=== PATIENT | female | born 1960 | race Asian ===

== ENCOUNTER 2016-09-29 19:28 | Emergency (ER) | payer BC ==
[~2016-09-29] VITALS: Ht 160 cm; Wt 71.9 kg
[2016-09-29 19:34] VITALS: TEMP 37; Ht 160 cm; Wt 71.9 kg
[2016-09-29] MEDS ORDERED: MoRPHine SULFATE 4 MG/ML 1 ML CARP\\VIAL IV STA (19:53)
[2016-09-29] MEDS ORDERED: ONDANSETRON INJ 2 MG/ML 2 ML VIAL IV STA (19:53)
[2016-09-29 20:12] LABS: URINE APPEARANCE CLEAR (CLEAR); URINE BILIRUBIN NEG (NEG); URINE COLOR YELLOW; URINE NITRITE NEG (NEG); URINE PH 7.5 (4.5-7.5); URINE SPECIFIC GRAVITY 1.004 (1.000-1.030); UROBILINOGEN NEG (NEG)
[2016-09-29 20:17] LABS: BASO % 0.3 %; BASO ABS # 0.03 K/uL (0-0.2); COMPLETE YES; EOS % 2.1 %; HEMATOCRIT 35.9 % (37-47); IG% 0.1 %; LYMPH % 49.3 %; LYMPH ABS # 4.42 K/uL (1.2-3.4); MEAN CELL VOLUME 84.7 fL (80-100); MEAN CORPUSCULAR HEMOGLOBIN 29.7 pg (25-34); MEAN CORPUSCULAR HGB CONC 35.1 g/dl (32-36); MEAN PLATELET VOLUME 9.8 fL (7.4-10.4); MONO % 4.4 %; NEUT % 43.8 %; PLATELET COUNT 303 K/uL (130-400); RED BLOOD COUNT 4.24 M/uL (4.2-5.4); WHITE BLOOD COUNT 8.96 K/uL (4.8-10.8)
[2016-09-29 20:19] LABS: MANUAL MICROSCOPIC REQUIRED? NO; REVIEW REQ? NO
[2016-09-29 20:27] LABS: PROTHROMBIN TIME (PATIENT) 10.3 SECONDS (9.0-12.0)
[2016-09-29 20:35] LABS: ALT/SGPT 33 U/L (12-78); AST/SGOT 21 U/L (15-37); BLOOD UREA NITROGEN 12 mg/dl (7-18); BUN/CREATININE RATIO 14.7 (10-20); CALCIUM 8.8 mg/dl (8.5-10.1); CARBON DIOXIDE 23 mmol/L (21-32); CHLORIDE 110 mmol/L (98-107); CREATININE 0.81 mg/dl (0.60-1.20); GLUCOSE 137 mg/dl (70-99); SODIUM 143 mmol/L (136-145)
[2016-09-29 20:37] LABS: ALKALINE PHOSPHATASE 92 U/L (45-117)
[2016-09-29] MEDS ORDERED: TOPI50TA16 PO (20:41)
[2016-09-29] MEDS ORDERED: PANT40TA PO (20:41)
[2016-09-29] MEDS ORDERED: SIMV20TA2 PO (20:41)
[2016-09-29] MEDS ORDERED: ASPI81TA28 PO (20:41)
[2016-09-29] MEDS ORDERED: PROP80TA2 PO (20:41)
[2016-09-29] MEDS ORDERED: AMLO-110 PO (20:41)
[2016-09-29] MEDS ORDERED: CHOLTAB11 PO (20:41)
[2016-09-29] MEDS ORDERED: PARO1TAB27 PO (20:41)
[2016-09-29] MEDS ORDERED: TRAZ50TA35 PO (20:41)
--- NOTE | 2016-09-29 21:17 | DIAGNOSTIC IMAGING REPORT ---
ULTRASOUND RIGHT UPPER QUADRANT ABDOMEN CLINICAL HISTORY: Right upper quadrant abdominal pain. COMPARISON STUDY: No priors. TECHNIQUE: Real-time, grayscale, and color flow sonography of the right upper quadrant of the abdomen was performed. Images are reviewed in the transverse and longitudinal planes. FINDINGS: Liver: The liver is top normal in size and demonstrates heterogeneously increased echotexture consistent with hepatic steatosis. There is no intrahepatic biliary ductal dilatation. The main portal vein is patent. Gallbladder: The gallbladder is normal in appearance. No gallstones are identified. There is no gallbladder wall thickening or pericholecystic fluid. A sonographic Escobedo's sign is reportedly absent. The common bile duct measures up to 0.5 cm in diameter. Pancreas: Visualized portions of the pancreatic head and body are normal in appearance. The splenic vein is patent. Right kidney: Survey images of the right kidney demonstrate normal size and echotexture. There is mild right-sided hydronephrosis. Ascites: None. IMPRESSION: 1. There is mild right-sided hydronephrosis. This raises concern for an obstructing ureteral calculus. Consider correlation with a KUB for further assessment. 2. No gallstones are identified. 3. Hepatic steatosis. Electronically signed by: Rolf Emerson M.D. 09/29/2016 9:15 PM Dictated Date/Time: 09/29/2016 9:14 PM
--- NOTE | 2016-09-29 21:46 | DIAGNOSTIC IMAGING REPORT ---
ADDENDUM ADDENDUM: As mentioned in the findings, there is an indeterminant 1.7 cm nodule identified in the right breast. Follow-up at the breast center with mammography is recommended for further assessment. Electronically signed by: Rolf Emerson M.D. 09/30/2016 10:00 AM Dictated Date/Time: 09/30/2016 10:[address] SCAN OF THE ABDOMEN AND PELVIS WITHOUT IV CONTRAST CLINICAL HISTORY: Right-sided abdominal pain. Right-sided hydronephrosis shown by ultrasound. COMPARISON STUDY: Abdominal ultrasound dated 09/29/2016. TECHNIQUE: CT scan of the abdomen and pelvis is performed from the lung bases to the proximal femora. Images are reviewed in the axial, sagittal, and coronal planes. IV contrast was not administered for this examination. Automated dose control exposure was utilized. CT DOSE: 1029.09 mGy.cm FINDINGS: Lung bases: The heart is normal in size and without pericardial effusion. The lung bases are clear noting dependent atelectasis. There is a 1.7 cm nodule in the right breast seen on image #34. There is a tiny hiatal hernia. Liver: The unenhanced liver is enlarged, measuring 18.3 cm in length. The liver demonstrates diffusely diminished attenuation consistent with hepatic steatosis. Fatty sparing is seen adjacent to the gallbladder fossa. There is no intrahepatic biliary ductal dilatation. Gallbladder: Unremarkable. Spleen: Normal in size and attenuation. Pancreas: Unremarkable. Adrenal glands: Unremarkable. Kidneys: The unenhanced kidneys demonstrate minimal cortical atrophy. There is a large right-sided extrarenal pelvis and mild right hydronephrosis. No hydronephrosis is seen on the left. The right ureter is normal in caliber. No renal calculi are identified. There is no evidence of contour deforming renal mass lesion. Abdominal vasculature: The abdominal aorta is normal in course and caliber. Bowel: The small bowel and colon are normal in course and caliber. There are scattered colonic diverticula without CT evidence of acute diverticulitis. The appendix is not identified. Peritoneum: There is no intraperitoneal free air or abdominal ascites. There is a small fat-containing umbilical hernia. Lymphadenopathy: None. Pelvic viscera: The bladder is normal as visualized. The uterus is surgically absent. No adnexal lesion is seen. Trace free fluid is noted in the cul-de-sac. Skeletal structures: No lytic or blastic lesions are seen. IMPRESSION: 1. There are no acute infectious or inflammatory findings in the abdomen or pelvis. 2. There is a large right-sided extrarenal pelvis and mild right hydronephrosis. The right ureter is normal in caliber and no renal calculi are identified. This likely represents a mild UPJ type obstruction. Nonemergent follow-up with urology is recommended. 3. Hepatomegaly and hepatic steatosis. 4. Additional findings as above. Electronically signed by: Rolf Emerson M.D. 09/29/2016 9:45 PM Dictated Date/Time: 09/29/2016 9:38 PM
[2016-09-29 22:17] VITALS: BP 148/81; PULSE 72; O2SAT 98
--- NOTE | 2016-09-29 23:20 | EMERGENCY ROOM VISIT NOTE ---
History Report prepared by Guadalupe: Rebecca Danielson Under the Supervision of: Dr. Evgeny Kirk M.D. First contact with patient: 19:46 Chief Complaint: ABDOMINAL PAIN Stated Complaint: ABD PAIN History of Present Illness The patient is a 55 year old female who presents to the Emergency Room with complaints of persistent upper abdominal pain that started 3 days ago. Per the patient's daughter, the patient describes this as a stabbing pain. This pain is worse after eating. The patient had similar, but less severe, pain 6 months ago[address] A abdominal CT and endoscopy were performed which were both negative. The patient denies vomiting, melena, hematochezia, diarrhea, and fevers. She denies any abnormal vaginal bleeding or discharge. She has no urinary symptoms. She has a history of an appendectomy, back in [facility], and a bilateral oophorectomy. Source of History: patient, family Onset: 3 days ago Position: abdomen Symptom Intensity: moderate Quality: stabbing Modifying Factors (Worsening): eating Associated Symptoms: No fevers, No hematochezia, No melena, No vomiting Review of Systems See HPI for pertinent positives & negatives. A total of 10 systems reviewed and were otherwise negative. Past Medical & Surgical Medical Problems: (1) Heart disease Surgical Problems: (1) Hx of appendectomy (2) Hx of bilateral oophorectomy Family History FH: cancer FH: diabetes mellitus FH: gallbladder disease FH: heart disease FH: hypertension FH: kidney disease FH: lung disease FH: stroke Social History Smoking Status: Never Smoker Alcohol Use: none Drug Use: none Marital Status: Housing Status: lives with family Occupation Status: unemployed Current/Historical Medications Scheduled Amlodipine (Norvasc), 5 MG PO DAILY Aspirin (Aspirin Ec), 81 MG PO QPM Cholecalciferol (D-5000), 1 TAB PO DAILY Pantoprazole (Protonix), 40 MG PO DAILY Paroxetine (Paxil), 20 MG PO DAILY Propranolol (Inderal), 80 MG PO BID Simvastatin (Zocor), 20 MG PO DAILY Topiramate (Topamax), 50 MG PO HS Scheduled PRN Trazodone Hcl (Trazodone), 50 MG PO HS PRN for Sleep Allergies Coded Allergies: Lemon (Verified Allergy, Intermediate, swelling, 09/29/16) Pratt (Unverified Adverse Reaction, Unknown, swelling, 09/29/16) Physical Exam Vital Signs Date Time Temp Pulse Resp B/P Pulse Ox O2 Delivery O2 Flow Rate FiO2 09/29/16 22:17 72 18 148/81 98 09/29/16 21:44 99 18 132/78 99 Room Air 09/29/16 19:34 37.0 75 18 148/91 98 Room Air Physical Exam Constitutional: Vital signs reviewed. Eyes: Pupils are equal round reactive to light. Conjunctiva are noninjected. ENT: Pharynx is clear without erythema or exudate. Mucous membranes are moist. Neck supple without meningeal signs. Respiratory: Clear to auscultation bilaterally. Breath sounds are equal bilaterally. Cardiovascular: Regular rate and rhythm. No rubs or gallops. GI: Epigastric right upper quadrant tenderness without guarding. No Escobedo's sign. Soft, nondistended Bowel sounds are present. Musculoskeletal: No peripheral edema. No lower extremity tenderness. No CVA tenderness. Integumentary: No cyanosis. Neurological: The patient is awake and alert. No focal deficits. Psychiatric: Normal affect. Medical Decision & Procedures ER Provider Diagnostic Interpretation: US results as stated below per interpretation by me and the radiologist: ULTRASOUND RIGHT UPPER QUADRANT ABDOMEN CLINICAL HISTORY: Right upper quadrant abdominal pain. COMPARISON STUDY: No priors. TECHNIQUE: Real-time, grayscale, and color flow sonography of the right upper quadrant of the abdomen was performed. Images are reviewed in the transverse and longitudinal planes. FINDINGS: Liver: The liver is top normal in size and demonstrates heterogeneously increased echotexture consistent with hepatic steatosis. There is no intrahepatic biliary ductal dilatation. The main portal vein is patent. Gallbladder: The gallbladder is normal in appearance. No gallstones are identified. There is no gallbladder wall thickening or pericholecystic fluid. A sonographic Escobedo's sign is reportedly absent. The common bile duct measures up to 0.5 cm in diameter. Pancreas: Visualized portions of the pancreatic head and body are normal in appearance. The splenic vein is patent. Right kidney: Survey images of the right kidney demonstrate normal size and echotexture. There is mild right-sided hydronephrosis. Ascites: None. IMPRESSION: 1. There is mild right-sided hydronephrosis. This raises concern for an obstructing ureteral calculus. Consider correlation with a KUB for further assessment. 2. No gallstones are identified. 3. Hepatic steatosis. Electronically signed by: Rolf Vilbert, M.D. 09/29/2016 9:15 PM Dictated Date/Time: 09/29/2016 9:[address] results as stated below per interpretation by me and the radiologist: CT SCAN OF THE ABDOMEN AND PELVIS WITHOUT IV CONTRAST CLINICAL HISTORY: Right-sided abdominal pain. Right-sided hydronephrosis shown by ultrasound. COMPARISON STUDY: Abdominal ultrasound dated 09/29/2016. TECHNIQUE: CT scan of the abdomen and pelvis is performed from the lung bases to the proximal femora. Images are reviewed in the axial, sagittal, and coronal planes. IV contrast was not administered for this examination. Automated dose control exposure was utilized. CT DOSE: 1029.09 mGy.cm FINDINGS: Lung bases: The heart is normal in size and without pericardial effusion. The lung bases are clear noting dependent atelectasis. There is a 1.7 cm nodule in the right breast seen on image #34. There is a tiny hiatal hernia. Liver: The unenhanced liver is enlarged, measuring 18.3 cm in length. The liver demonstrates diffusely diminished attenuation consistent with hepatic steatosis. Fatty sparing is seen adjacent to the gallbladder fossa. There is no intrahepatic biliary ductal dilatation. Gallbladder: Unremarkable. Spleen: Normal in size and attenuation. Pancreas: Unremarkable. Adrenal glands: Unremarkable. Kidneys: The unenhanced kidneys demonstrate minimal cortical atrophy. There is a large right-sided extrarenal pelvis and mild right hydronephrosis. No hydronephrosis is seen on the left. The right ureter is normal in caliber. No renal calculi are identified. There is no evidence of contour deforming renal mass lesion. Abdominal vasculature: The abdominal aorta is normal in course and caliber. Bowel: The small bowel and colon are normal in course and caliber. There are scattered colonic diverticula without CT evidence of acute diverticulitis. The appendix is not identified. Peritoneum: There is no intraperitoneal free air or abdominal ascites. There is a small fat-containing umbilical hernia. Lymphadenopathy: None. Pelvic viscera: The bladder is normal as visualized. The uterus is surgically absent. No adnexal lesion is seen. Trace free fluid is noted in the cul-de-sac. Skeletal structures: No lytic or blastic lesions are seen. IMPRESSION: 1. There are no acute infectious or inflammatory findings in the abdomen or pelvis. 2. There is a large right-sided extrarenal pelvis and mild right hydronephrosis. The right ureter is normal in caliber and no renal calculi are identified. This likely represents a mild UPJ type obstruction. Nonemergent follow-up with urology is recommended. 3. Hepatomegaly and hepatic steatosis. 4. Additional findings as above. Electronically signed by: Rolf Emerson M.D. 09/29/2016 9:45 PM Dictated Date/Time: 09/29/2016 9:38 PM Laboratory Results 09/29/16 20:05 Red Blood Count 4.24, Mean Corpuscular Volume 84.7, Mean Corpuscular Hemoglobin 29.7, Mean Corpuscular Hemoglobin Concent 35.1, Mean Platelet Volume 9.8, Neutrophils (%) (Auto) 43.8, Lymphocytes (%) (Auto) 49.3, Monocytes (%) (Auto) 4.4, Eosinophils (%) (Auto) 2.1, Basophils (%) (Auto) 0.3, Neutrophils # (Auto) 3.92, Lymphocytes # (Auto) 4.42, Monocytes # (Auto) 0.39, Eosinophils # (Auto) 0.19, Basophils # (Auto) 0.03 09/29/16 20:05 Test 09/29/16 20:00 09/29/16 20:05 Urine Color YELLOW Urine Appearance CLEAR (CLEAR) Urine pH 7.5 (4.5-7.5) Urine Specific [place] 1.004 (1.000-1.030) Urine Protein NEG (NEG) Urine Glucose (UA) NEG (NEG) Urine Ketones NEG (NEG) Urine Occult Blood NEG (NEG) Urine Nitrite NEG (NEG) Urine Bilirubin NEG (NEG) Urine Urobilinogen NEG (NEG) Urine Leukocyte Esterase NEG (NEG) White Blood Count 8.96 K/uL (4.8-10.8) Red Blood Count 4.24 M/uL (4.2-5.4) Hemoglobin 12.6 g/dL (12.0-16.0) Hematocrit 35.9 % (37-47) Mean Corpuscular Volume 84.7 fL (80-100) Mean Corpuscular Hemoglobin 29.7 pg (25-34) Mean Corpuscular Hemoglobin Concent 35.1 g/dl (32-36) Platelet Count 303 K/uL (130-400) Mean Platelet Volume 9.8 fL (7.4-10.4) Neutrophils (%) (Auto) 43.8 % Lymphocytes (%) (Auto) 49.3 % Monocytes (%) (Auto) 4.4 % Eosinophils (%) (Auto) 2.1 % Basophils (%) (Auto) 0.3 % Neutrophils # (Auto) 3.92 K/uL (1.4-6.5) Lymphocytes # (Auto) 4.42 K/uL (1.2-3.4) Monocytes # (Auto) 0.39 K/uL (0.11-0.59) Eosinophils # (Auto) 0.19 K/uL (0-0.5) Basophils # (Auto) 0.03 K/uL (0-0.2) RDW Standard Deviation 41.0 fL (36.4-46.3) RDW Coefficient of Variation 13.4 % (11.5-14.5) Immature Granulocyte % (Auto) 0.1 % Immature Granulocyte # (Auto) 0.01 K/uL (0.00-0.02) Prothrombin Time 10.3 SECONDS (9.0-12.0) Prothromb Time International Ratio 1.0 (0.9-1.1) Activated Partial Thromboplast Time 25.0 SECONDS (21.0-31.0) Partial Thromboplastin Ratio 1.0 Anion Gap 10.0 mmol/L (3-11) Est Creatinine Clear Calc Drug Dose 74.6 ml/min Estimated GFR () 94.8 Estimated GFR (Non- 81.8 BUN/Creatinine Ratio 14.7 (10-20) Calcium Level 8.8 mg/dl (8.5-10.1) Total Bilirubin 0.3 mg/dl (0.2-1) Direct Bilirubin < 0.1 mg/dl (0-0.2) Aspartate Amino Transf (AST/SGOT) 21 U/L (15-37) Alanine Aminotransferase (ALT/SGPT) 33 U/L (12-78) Alkaline Phosphatase 92 U/L (45-117) Total Protein 7.4 gm/dl (6.4-8.2) Albumin 3.7 gm/dl (3.4-5.0) Lipase 162 U/L (73-393) Laboratory results as reviewed by me. Medications Administered Medications (Trade) Dose Ordered Sig/Antonieta Route Start Time Stop Time Status Last Admin Dose Admin Morphine Sulfate (MoRPHine SULFATE INJ) 4 mg ONE STAT IV 09/29/16 19:53 09/29/16 19:54 DC 09/29/16 19:53 4 MG Ondansetron HCl (Zofran Inj) 4 mg NOW STAT IV 09/29/16 19:53 09/29/16 19:54 DC 09/29/16 19:53 4 MG ECG Indication: abdominal pain Rate (beats per minute): 78 Rhythm: normal sinus Findings: no acute ischemic change, no ectopy ED Course 1949: The patient was evaluated in room C1. A complete history and physical exam was performed. 1952: Ordered Zofran Injection 4 mg IV, Morphine Sulfate 4 mg IV. 2125: Upon reevaluation, the patient is feeling better. I discussed the patient' s test results. She agreed to a CT scan for further evaluation. 2154: I discussed the patient's case with the patient's sister, who is a physician. 2205: The patient mentions that he has not been taking her Protonix regularly. I recommended that she does start to take it as prescribed. The patient has an appointment with GI on the . She will be going back home on Tuesday. The discharge instructions were discussed with the patient and her family. They are agreeable and understanding. The patient was discharged home. Medical Decision This is a 55-year-old female who presents with upper abdominal pain. Differential diagnosis includes cholelithiasis, cholecystitis, pancreatitis, peptic ulcer disease, irritable bowel syndrome. I did perform a limited focused review of portions of the patient's old chart on the electronic medical record. The patient has had no prior visits to this hospital. I did evaluate the patient as noted above. Patient is presenting with upper abdominal pain. She is diffusely tender in the upper abdomen, but mostly in the epigastric and right upper quadrant. She does not have an Escobedo sign. She has had similar pain 6 months ago and saw a GI doctor. She did have an EGD and CT scan which were reported by her daughter is normal. IV access was established. I did treat the patient with IV morphine and Zofran. I did order and personally review the patient's urinalysis as described above. I did order and review the patient's blood work as noted in the electronic medical record. Her white blood cell count is not elevated. LFTs and lipase are unremarkable. I did order an ultrasound of the right upper quadrant. I did review the images myself as well as the radiology report as described above. There is no evidence of gallstones. She did have what appeared to be hydronephrosis on the right side. I did reassess the patient. After further discussion I did order a CT of the abdomen and pelvis. The CAT scan showed a dilated renal pelvis and mild [place] which the family states was present on her previous CT scan. The patient is feeling better at this time. I did discuss the test results with her and her family. At this time the cause of her pain is unclear. I did talk to her sister who is a physician about her care at the patient's request. I did recommend follow up with gastroenterology. She does have an appointment later this month to see the windows software developer and is returning back home this Tuesday. The patient notes that she has not been taking her Protonix as prescribed. She takes it on a when necessary basis. I did recommend she take it on a regular basis as prescribed. She will also follow up with a urologist when they get back home. She was discharged in good condition and given return instructions as outlined below. Impression Primary Impression: Upper abdominal pain Additional Impression: Hydronephrosis, right Scribe Attestation The scribe's documentation has been prepared under my direct and personally reviewed by me in its entirety. I confirm that the note above accurately reflects all work, treatment, procedures, and medical decision making performed by me. Departure Information Dispostion Home / Self-Care Referrals Jeff Reed M.D. (PCP) Forms Call Back Authorization, HOME CARE DOCUMENTATION FORM, IMPORTANT VISIT INFORMATION Patient Instructions My [facility] Additional Instructions You have been examined and treated today on an emergency basis only. This is not a substitute for, or an effort to provide, complete comprehensive medical care. It is impossible to recognize and treat all injuries or illnesses in a single emergency department visit. It is therefore important that you follow up closely with your physician. Call as soon as possible for an appointment. Return for worsening symptoms or if you develop fever, vomiting, chest pain, shortness of breath, black or bloody stools or any other concerning symptoms. Problem Qualifiers
== END 2016-09-29 22:17 | disposition home or self-care (01) ==
LOC: C.EDB 19:31 → C.EDC 22:17
DX: R10.10 Upper abdominal pain, unspecified (principal); N13.30 Unspecified hydronephrosis; I51.9 Heart disease, unspecified; Z98.51 Tubal ligation status; Z98.890 Other specified postprocedural states; Z79.82 Long term (current) use of aspirin; Z79.899 Other long term (current) drug therapy; Z91.018 Allergy to other foods; Z80.9 Family history of malignant neoplasm, unspecified; Z83.3 Family history of diabetes mellitus; Z83.79 Family history of other diseases of the digestive system; Z82.49 Family history of ischemic heart disease and other diseases of the circulatory system; Z84.1 Family history of disorders of kidney and ureter; Z82.3 Family history of stroke

== ENCOUNTER → 2017-02-15 | Outpatient (CLI) | payer BC ==
[~2017-02-15] MED LIST: AMLO-110 PO; ASPI81TA28 PO; CHOLTAB11 PO; PANT40TA PO; PARO1TAB27 PO; PROP80TA2 PO; SIMV20TA2 PO; TOPI50TA16 PO; TRAZ50TA35 PO
[2017-02-15 18:10] LABS: ALT/SGPT 35 U/L (12-78); AST/SGOT 21 U/L (15-37); BLOOD UREA NITROGEN 12 mg/dl (7-18); BUN/CREATININE RATIO 16.8 (10-20); CALCIUM 9.5 mg/dl (8.5-10.1); CARBON DIOXIDE 29 mmol/L (21-32); CHLORIDE 110 mmol/L (98-107); CREATININE 0.69 mg/dl (0.60-1.20); GLUCOSE 129 mg/dl (70-99); POTASSIUM 3.6 mmol/L (3.5-5.1); SODIUM 142 mmol/L (136-145)
[2017-02-15 18:13] LABS: ALKALINE PHOSPHATASE 98 U/L (45-117)
== END | disposition home or self-care (01) ==
LOC: C.LAB1850 15:58
PROVIDERS: ATTEND Internal Medicine Endocrinology, Diabetes & Metabolism
DX: E55.9 Vitamin D deficiency, unspecified (principal)

== ENCOUNTER 2017-09-19 21:59 | Inpatient (IN) | payer BC ==
[~2017-09-19] VITALS: Ht 162.6 cm; Wt 72.5 kg
[2017-09-19] MEDS ORDERED: OPTIRAY 320 IV PRN (22:30)
[2017-09-19 22:54] LABS: HEMATOCRIT 33.9 % (37-47); HEMOGLOBIN 12.1 g/dL (12.0-16.0); MEAN CELL VOLUME 84.3 fL (80-100); MEAN CORPUSCULAR HEMOGLOBIN 30.1 pg (25-34); MEAN CORPUSCULAR HGB CONC 35.7 g/dl (32-36); MEAN PLATELET VOLUME 9.4 fL (7.4-10.4); PLATELET COUNT 269 K/uL (130-400); RED CELL DISTRIBUTION WIDTH SD 39.6 fL (36.4-46.3)
[2017-09-19 22:57] LABS: ISTAT CREATININE 0.6 mg/dl (0.6-1.3); ISTAT IONIZED CALCIUM 1.18 mmol/l (1.12-1.32); ISTAT POTASSIUM 3.6 mEq/L (3.3-5.0)
--- NOTE | 2017-09-19 23:00 | DIAGNOSTIC IMAGING REPORT ---
CHEST CTA for AORTIC DISSECTION CT DOSE: 1619.32 mGy.cm HISTORY: Left-sided chest pain with left arm and leg pain. R/O DISSECTION TECHNIQUE: Multiaxial CT images of the chest were performed both before and after the intravenous administration of contrast to evaluate the aorta. Maximal intensity projection images were also obtained. A dose lowering technique was utilized adhering to the principles of ALARA. COMPARISON STUDY: Abdomen and pelvis CT 09/29/2016. FINDINGS: Noncontrast imaging through the chest shows no evidence for an intramural hematoma within the thoracic aorta. Mild calcified plaque at the aortic arch. Minimal noncalcified plaque within the descending thoracic aorta. The thoracic aorta is normal in caliber with no evidence for dissection. The main pulmonary arteries are patent. Subtle hypodensity at the apex of the left ventricle. This raises the possibility of an age-indeterminate subendocardial infarct. Hepatic steatosis. The visualized spleen and adrenal glands are unremarkable. Stable 1.7 cm nodule within the right breast. There are 2 subcentimeter nodules within the left breast the largest measuring 9 mm. These were not included on the prior study for comparison. No mediastinal or hilar lymphadenopathy. No pleural or pericardial effusions. The heart is mildly enlarged. No acute fractures within the visualized osseous structures. Bibasilar linear densities favor subsegmental atelectasis. No pneumothorax. Mild respiratory motion artifact. The central airways appear patent. IMPRESSION: 1. No evidence for an aortic dissection. 2. Subtle hypodensity at the apex of the left ventricle. This raises the possibility of an age-indeterminate subendocardial infarct. Clinical correlation recommended. 3. Bilateral breast nodules. The right breast nodule remains stable. Follow-up nonemergent mammogram/ultrasound is recommended for further evaluation. 4. Additional findings as described above. Electronically signed by: Jaspal Quarles M.D. 09/19/2017 10:59 PM Dictated Date/Time: 09/19/2017 10:48 PM
[2017-09-19 23:06] LABS: PTT PATIENT 26.4 SECONDS (21.0-31.0)
[2017-09-19 23:14] LABS: ALBUMIN 3.3 gm/dl (3.4-5.0); ALT/SGPT 34 U/L (12-78); AST/SGOT 20 U/L (15-37); BLOOD UREA NITROGEN 16 mg/dl (7-18); CALCIUM 8.5 mg/dl (8.5-10.1); CARBON DIOXIDE 25 mmol/L (21-32); CREATININE 0.68 mg/dl (0.60-1.20); GLUCOSE 122 mg/dl (70-99); LIPASE 215 U/L (73-393); POTASSIUM 3.9 mmol/L (3.5-5.1); SODIUM 137 mmol/L (136-145)
--- NOTE | 2017-09-19 23:14 | DIAGNOSTIC IMAGING REPORT ---
HEAD CT NONCONTRAST CT DOSE: HISTORY: syncope TECHNIQUE: Multiaxial CT images of the head were performed without the use of intravenous contrast. Automated exposure control was utilized for this study. A dose lowering technique was utilized adhering to the principles of ALARA. Comparison: None. Findings: The paranasal sinuses and mastoid air cells are clear. The calvarium and skull base are intact. The ventricles and sulci are within normal limits. There is no hematoma, midline shift, or acute infarct. A few punctate calcifications within the bilateral basal ganglia. There is an 11 mm extra-axial soft tissue lesion within the left frontal region on image 16. There is focal hyperostosis of the adjacent calvarium. Therefore, this likely represents a small meningioma. Impression: 1. No acute intracranial abnormality. 2. An 11 mm extra-axial left frontal lesion which likely represents a small meningioma. This is of doubtful clinical significance. Follow-up nonemergent brain MRI can be used for confirmation. Electronically signed by: Jaspal Quarles M.D. 09/19/2017 11:13 PM Dictated Date/Time: 09/19/2017 11:07 PM
[2017-09-19 23:19] LABS: ALKALINE PHOSPHATASE 82 U/L (45-117)
[2017-09-19] MEDS ORDERED: ENAL10TA88 PO (23:41)
[2017-09-19 23:45] LABS: BASO % 0.2 %; BASO ABS # 0.02 K/uL (0-0.2); EOS % 1.8 %; EOS ABS # 0.16 K/uL (0-0.5); IG# 0.02 K/uL (0.00-0.02); LYMPH % 50.7 %; LYMPH ABS # 4.61 K/uL (1.2-3.4); MONO % 5.7 %; MONO ABS # 0.52 K/uL (0.11-0.59); NEUT % 41.4 %; NEUT ABS # 3.77 K/uL (1.4-6.5)
[2017-09-20] MEDS ORDERED: NITROGLYCERIN 0.4 MG SL PER TAB CHARGE SL STA (00:04)
[2017-09-20] MEDS ORDERED: SODIUM CHLORIDE 0.9% 1000ML 1,000 ML IV STA (00:04)
[2017-09-20] MEDS ORDERED: LORAZEPAM 2 MG/ML 1 ML VIAL IV STA (00:04)
[2017-09-20] MEDS ORDERED: ASPIRIN 81 MG CHEW PO STA (00:07)
--- NOTE | 2017-09-20 00:26 | EMERGENCY ROOM VISIT NOTE ---
History Report prepared by Guadalupe: Yissel Lino Under the Supervision of: Dr. Roly Cheng M.D. First contact with patient: 22:08 Chief Complaint: CHEST PAIN Stated Complaint: UNCONSCIOUS Nursing Triage Summary: Per son in law patient started to c/o left arm pain around 2029 that went up to her left chest. Pt said that it seemed after awhile that she was unresponsive, her eyes were closed and had her tongue out. Pt does not speak Syriac. Pt c/o left sided chest pain at this time. History of Present Illness The patient is a 56 year old female who presents to the Emergency Room with complaints of persistent chest pain starting 2 hours ago. The chest pain starts in the center left of her chest and radiates down her left arm and leg. The patient passed out. She also has a headache and SOB. She denies any hematuria or hematochezia. She denies any recent travel. Source of History: patient, family Onset: 2 hours ago Position: chest (left) Quality: other (pain) Timing: other (persistent) Modifying Factors (Worsening): other (lifting up left leg) Associated Symptoms: + LOC, + headache, + SOB, No hematochezia, No urinary symptoms Review of Systems See HPI for pertinent positives and negatives. A total of ten systems were reviewed and were otherwise negative. Past Medical & Surgical Medical Problems: (1) Heart disease (2) LUE weakness Surgical Problems: (1) Hx of appendectomy (2) Hx of bilateral oophorectomy Family History FH: cancer FH: diabetes mellitus FH: gallbladder disease FH: heart disease FH: hypertension FH: kidney disease FH: lung disease FH: stroke Social History Smoking Status: Never Smoker Alcohol Use: none Drug Use: none Marital Status: Housing Status: lives with family Occupation Status: unemployed Current/Historical Medications Scheduled Aspirin (Aspirin Ec), 81 MG PO QPM Cholecalciferol (D-5000), 1 TAB PO DAILY Enalapril (Vasotec), 20 MG PO DAILY Pantoprazole (Protonix), 40 MG PO DAILY Paroxetine (Paxil), 20 MG PO DAILY Propranolol (Inderal), 80 MG PO BID Simvastatin (Zocor), 20 MG PO DAILY Topiramate (Topamax), 50 MG PO HS Allergies Coded Allergies: Lemon (Verified Allergy, Intermediate, swelling, 09/19/17) Bremer (Unverified Adverse Reaction, Unknown, swelling, 09/19/17) Physical Exam Vital Signs Date Time Temp Pulse Resp B/P (MAP) Pulse Ox O2 Delivery O2 Flow Rate FiO2 09/20/17 00:35 76 23 149/84 97 Room Air 09/20/17 00:01 76 23 150/88 97 Room Air 09/19/17 23:31 79 16 150/84 97 Room Air 09/19/17 23:01 81 21 163/100 97 Room Air 09/19/17 22:50 83 18 178/102 97 Room Air 09/19/17 22:50 83 20 178/102 100 Room Air 09/19/17 22:43 99 Room Air 09/19/17 22:39 86 20 178/88 99 Room Air 09/19/17 22:23 80 16 175/129 99 Room Air 09/19/17 22:15 82 09/19/17 22:07 98 Room Air 09/19/17 22:02 36.5 77 18 205/123 99 Room Air Physical Exam Physical Exam GENERAL: She is crying and screaming in pain. She appears well-developed and well-nourished. She does appear distressed. ____ EYES: Conjunctivae and EOM are normal. Pupils are equal, round, and reactive to light. Right eye exhibits no discharge. Left eye exhibits no discharge. No scleral icterus. ____ NECK: Normal range of motion. Neck supple. No JVD present. No spinous process tenderness present. No carotid bruit present. No rigidity. No tracheal deviation and normal range of motion present. No Brudzinski's sign and no Kernig 's sign noted. ____ CV: Tachycardic rate, regular rhythm, normal heart sounds and intact distal pulses. There is no peripheral edema. Palpable radial pulses bue. ____ PULM/CHEST: Effort normal and breath sounds normal. No respiratory distress. No stridor. She has no wheezes. She has no rales. ABD: The abdomen is soft. Bowel sounds are normal. She has no distension. No mass is present. There is no tenderness. There is no rebound, no guarding, no Escobedo's sign and no tenderness at McBurney's point. Rovsig negative MUSC/SKEL: Normal range of motion. There is no peripheral edema, tenderness or deformity. LYMPH: No cervical adenopathy. ____ NEURO: She is alert and oriented to person, place, and time. NIH stroke scale 0. She has normal strength. No cranial nerve deficit or sensory deficit. Coordination and gait normal. GCS eye subscore is 4. GCS verbal subscore is 5. GCS motor subscore is 6. Cerebellar tests wnl. ____ SKIN: Skin is warm and dry. She is not diaphoretic. ____ Medical Decision & Procedures ER Provider Diagnostic Interpretation: X-ray: Per my interpretation, radiologist review. Radiology results as stated below per my review and radiologist interpretation: Chest X-ray shows no pneumothorax, patent airway, no bony fractures, no free air under the diaphragm, no consolidation concerning for pneumonia, no cardiomegaly or cephalization. HEAD CT NONCONTRAST CT DOSE: HISTORY: syncope TECHNIQUE: Multiaxial CT images of the head were performed without the use of intravenous contrast. Automated exposure control was utilized for this study. A dose lowering technique was utilized adhering to the principles of ALARA. Comparison: None. Findings: The paranasal sinuses and mastoid air cells are clear. The calvarium and skull base are intact. The ventricles and sulci are within normal limits. There is no hematoma, midline shift, or acute infarct. A few punctate calcifications within the bilateral basal ganglia. There is an 11 mm extra-axial soft tissue lesion within the left frontal region on image 16. There is focal hyperostosis of the adjacent calvarium. Therefore, this likely represents a small meningioma. Impression: 1. No acute intracranial abnormality. 2. An 11 mm extra-axial left frontal lesion which likely represents a small meningioma. This is of doubtful clinical significance. Follow-up nonemergent brain MRI can be used for confirmation. Electronically signed by: Jaspal Quarles M.D. 09/19/2017 11:13 PM Dictated Date/Time: 09/19/2017 11:07 PM CHEST CTA for AORTIC DISSECTION CT DOSE: 1619.32 mGy.cm HISTORY: Left-sided chest pain with left arm and leg pain. R/O DISSECTION TECHNIQUE: Multiaxial CT images of the chest were performed both before and after the intravenous administration of contrast to evaluate the aorta. Maximal intensity projection images were also obtained. A dose lowering technique was utilized adhering to the principles of ALARA. COMPARISON STUDY: Abdomen and pelvis CT 09/29/2016. FINDINGS: Noncontrast imaging through the chest shows no evidence for an intramural hematoma within the thoracic aorta. Mild calcified plaque at the aortic arch. Minimal noncalcified plaque within the descending thoracic aorta. The thoracic aorta is normal in caliber with no evidence for dissection. The main pulmonary arteries are patent. Subtle hypodensity at the apex of the left ventricle. This raises the possibility of an age-indeterminate subendocardial infarct. Hepatic steatosis. The visualized spleen and adrenal glands are unremarkable. Stable 1.7 cm nodule within the right breast. There are 2 subcentimeter nodules within the left breast the largest measuring 9 mm. These were not included on the prior study for comparison. No mediastinal or hilar lymphadenopathy. No pleural or pericardial effusions. The heart is mildly enlarged. No acute fractures within the visualized osseous structures. Bibasilar linear densities favor subsegmental atelectasis. No pneumothorax. Mild respiratory motion artifact. The central airways appear patent. IMPRESSION: 1. No evidence for an aortic dissection. 2. Subtle hypodensity at the apex of the left ventricle. This raises the possibility of an age-indeterminate subendocardial infarct. Clinical correlation recommended. 3. Bilateral breast nodules. The right breast nodule remains stable. Follow-up nonemergent mammogram/ultrasound is recommended for further evaluation. 4. Additional findings as described above. Electronically signed by: Jaspal Quarles M.D. 09/19/2017 10:59 PM Dictated Date/Time: 09/19/2017 10:48 PM Laboratory Results 09/19/17 22:48 Red Blood Count 4.02, Mean Corpuscular Volume 84.3, Mean Corpuscular Hemoglobin 30.1, Mean Corpuscular Hemoglobin Concent 35.7, Mean Platelet Volume 9.4, Neutrophils (%) (Auto) 41.4, Lymphocytes (%) (Auto) 50.7, Monocytes (%) (Auto) 5.7, Eosinophils (%) (Auto) 1.8, Basophils (%) (Auto) 0.2, Neutrophils # (Auto) 3.77, Lymphocytes # (Auto) 4.61, Monocytes # (Auto) 0.52, Eosinophils # (Auto) 0.16, Basophils # (Auto) 0.02 09/19/17 22:48 Test 09/19/17 22:45 09/19/17 22:48 Bedside Hemoglobin 10.9 g/dl (12.0-16.0) Bedside Hematocrit 32 % (37-47) Bedside Sodium 140 mEq/L (135-144) Bedside Potassium 3.6 mEq/L (3.3-5.0) Bedside Chloride 103 mEq/L (101-112) Bedside Total CO2 23 mEq/l (24-31) Bedside Blood Urea Nitrogen 16 mg/dl (7-18) Bedside Creatinine 0.6 mg/dl (0.6-1.3) Bedside Glucose (other) 121 mg/dl (70-99) Bedside Ionized Calcium (Blanca) 1.18 mmol/l (1.12-1.32) White Blood Count 9.10 K/uL (4.8-10.8) Red Blood Count 4.02 M/uL (4.2-5.4) Hemoglobin 12.1 g/dL (12.0-16.0) Hematocrit 33.9 % (37-47) Mean Corpuscular Volume 84.3 fL (80-100) Mean Corpuscular Hemoglobin 30.1 pg (25-34) Mean Corpuscular Hemoglobin Concent 35.7 g/dl (32-36) Platelet Count 269 K/uL (130-400) Mean Platelet Volume 9.4 fL (7.4-10.4) Neutrophils (%) (Auto) 41.4 % Lymphocytes (%) (Auto) 50.7 % Monocytes (%) (Auto) 5.7 % Eosinophils (%) (Auto) 1.8 % Basophils (%) (Auto) 0.2 % Neutrophils # (Auto) 3.77 K/uL (1.4-6.5) Lymphocytes # (Auto) 4.61 K/uL (1.2-3.4) Monocytes # (Auto) 0.52 K/uL (0.11-0.59) Eosinophils # (Auto) 0.16 K/uL (0-0.5) Basophils # (Auto) 0.02 K/uL (0-0.2) RDW Standard Deviation 39.6 fL (36.4-46.3) RDW Coefficient of Variation 13.0 % (11.5-14.5) Immature Granulocyte % (Auto) 0.2 % Immature Granulocyte # (Auto) 0.02 K/uL (0.00-0.02) Prothrombin Time 10.7 SECONDS (9.0-12.0) Prothromb Time International Ratio 1.0 (0.9-1.1) Activated Partial Thromboplast Time 26.4 SECONDS (21.0-31.0) Partial Thromboplastin Ratio 1.0 Anion Gap 7.0 mmol/L (3-11) Est Creatinine Clear Calc Drug Dose 92.2 ml/min Estimated GFR () 113.3 Estimated GFR (Non- 97.8 BUN/Creatinine Ratio 23.3 (10-20) Calcium Level 8.5 mg/dl (8.5-10.1) Total Bilirubin 0.3 mg/dl (0.2-1) Direct Bilirubin < 0.1 mg/dl (0-0.2) Aspartate Amino Transf (AST/SGOT) 20 U/L (15-37) Alanine Aminotransferase (ALT/SGPT) 34 U/L (12-78) Alkaline Phosphatase 82 U/L (45-117) Troponin I < 0.015 ng/ml (0-0.045) Total Protein 7.0 gm/dl (6.4-8.2) Albumin 3.3 gm/dl (3.4-5.0) Lipase 215 U/L (73-393) Laboratory results reviewed by me Medications Administered Medications (Trade) Dose Ordered Sig/Antonieta Route Start Time Stop Time Status Last Admin Dose Admin Nitroglycerin (Nitrostat Tab) 0.4 mg ONE STAT SL 09/20/17 00:04 09/20/17 00:06 DC 09/20/17 00:31 0.4 MG Sodium Chloride 1,000 ml @ 125 mls/hr Q8H STAT IV 09/20/17 00:04 09/20/17 08:03 09/20/17 00:33 125 MLS/HR Aspirin (Aspirin Chew) 324 mg NOW STAT PO 09/20/17 00:07 09/20/17 00:08 DC 09/20/17 00:31 324 MG ECG Per My Interpretation Indication: chest pain Rate (beats per minute): 78 Rhythm: sinus rhythm Findings: other (MS, QRS, and QTc wnl, no ST elevation or ST depression) ED Course 2208: The patient was evaluated in room B1. A complete history and physical exam was performed. Patient was immediately seen on arrival in the emergency department. Patient was immediately placed on classroom monitor large-bore IV access obtained. Initial blood pressure severely elevated, tachycardic on exam. I spoke with the patient's family member who works as health care provider at [employer]. She states that she was not there but a family member told her that the patient complained of chest pain and lost consciousness at 1999. The patient has a long history of hypertension and is on atenolol. She states that she was told that when the patient woke up she had some slurred speech and she is concerned for stroke. I explained that at this time the patient's neurological exam shows no neurological deficits and she is continuing to complain of chest pain radiating to the left arm and left leg, more concerning for dissection. IV access was obtained, however was unable to draw labs off of the IV. Given that dissection remains very high on the list, the patient was sent for CTA prior to obtaining a creatinine level. The family at bedside states that the patient has no history of kidney disease. 2331: Patient's blood pressure is improved. CTA showed no dissection. CT head showed no acute intracranial abnormality, but there is a small meningioma. EKG and troponin wnl. Repeat neuro exam shows GCS of 15, strength and motor intact. NIH stroke scale repeated at this time was 0. Pt has no PE risk factors. It is thought that the patient had a syncopal episode and will be admitted for syncope work up, serial troponin, cardiology and neurology consult. Pt is not from this area. Hospitalist was paged for admission. 2348: I discussed the patient's case with Dr. Fernandez, [facility] hospitalist. The patient will be evaluated for further treatment and disposition. Medical Decision 2209: The patient was evaluated in room B1. A complete history and physical exam was performed. Patient was immediately seen on arrival in the emergency department. Patient was immediately placed on classroom monitor large-bore IV access obtained. Initial blood pressure severely elevated, tachycardic on exam. I spoke with the patient's family member who works as health care provider at [employer]. She states that she was not there but a family member told her that the patient complained of chest pain and lost consciousness at 1999. The patient has a long history of hypertension and is on atenolol. She states that she was told that when the patient woke up she had some slurred speech and she is concerned for stroke. I explained that at this time the patient's neurological exam shows no neurological deficits and she is continuing to complain of chest pain radiating to the left arm and left leg, more concerning for dissection. IV access was obtained, however was unable to draw labs off of the IV. Given that dissection remains very high on the list, the patient was sent for CTA prior to obtaining a creatinine level. The family at bedside states that the patient has no history of kidney disease. 2331: Patient's blood pressure is improved. CTA showed no dissection. CT head showed no acute intracranial abnormality, but there is a small meningioma. EKG and troponin wnl. Repeat neuro exam shows GCS of 15, strength and motor intact. NIH stroke scale repeated at this time was 0. Pt has no PE risk factors. It is thought that the patient had a syncopal episode and will be admitted for syncope work up, serial troponin, cardiology and neurology consult. Pt is not from this area. Hospitalist was paged for admission. 2348: I discussed the patient's case with Barbie Dean hospitalist. The patient will be evaluated for further treatment and disposition. Medication Reconcilliation Current Medication List: was personally reviewed by me Blood Pressure Screening Patient's blood pressure: Elevated blood pressure Referred to hospitalist. Consults Time Called: 2333 Consulting Physician: Barbie Dean hospitalist Returned Call: [phone] Discussed the patient's case. The patient will be evaluated for further treatment and disposition. Impression Primary Impression: Syncope Additional Impression: Chest pain Critical Care I have personally spent greater than 42 minutes of critical care time in the direct management of this patient. This includes bedside care, interpretation of diagnostic studies, and testing, discussion with consultants, patient, and family members, and other required patient management activities. This 42 minutes is in excess of all separately billable procedures. Scribe Attestation The scribe's documentation has been prepared under my direction and personally reviewed by me in its entirety. I confirm that the note above accurately reflects all work, treatment, procedures, and medical decision making performed by me. The chart was completed utilizing [employer] voice recognition software. Grammatical errors, random word insertions, pronoun errors, and incomplete sentences are an occasional consequence of this system due to software limitations, ambient noise, and hardware issues. Any formal questions or concerns about the content, text, or information contained within the body of this dictation should be directly addressed to the physician for clarification. Departure Information Dispostion Being Evaluated By Hospitalist Referrals Jeff Reed M.D. (PCP) Patient Instructions My [facility] Problem Qualifiers
[2017-09-20] MEDS ORDERED: POLYETHYLENE (MIRALAX) 17 GM PACK PO PRN (01:15)
[2017-09-20] MEDS ORDERED: ACETAMINOPHEN 325 MG TAB PO PRN (01:15)
[2017-09-20] MEDS ORDERED: ONDANSETRON INJ 2 MG/ML 2 ML VIAL IV PRN (01:15)
[2017-09-20] MEDS ORDERED: PHARMACIST DISCHARGE MED REC CONSULT PRN (01:15)
--- NOTE | 2017-09-20 02:40 | History and Physical ---
History & Physical Date & Time of Service: Sep 20, 2017 at 02:12 Chief Complaint: Unconscious Primary Care Physician: Jeff Reed M.D. History of Present Illness Source: patient, family Patient is a 56 yo female who was brought to the ER for complaints of severe chest pain and syncope. The patient is accompanied by her son-in-law and family member who state that the patient began to complain of pain around 6 PM while sitting on the couch, they state that later in the evening the patient slumped over next to her family member and they thought she was taking rest, however she had her eyes closed and was completely unresponsive. No shaking or convulsions noted. The patient reportedly had her mouth open and tongue hanging out, but did not seem to have any eye deviation, frothing, or loss of bowel or bladder control. The patient was finally able to be awakened, and complained of having pain in her shoulders and down her arms. She states she recalls having the chest pain and associated dizziness and also numbness in her left arm, but does not recall passing out. She reports having a headache now but denies any visual symptoms. She was given NTG and aspirin in the ER and has had some improvement in her symptoms but still feels pain in her chest and left arm. No recent illness or known sick contacts. Also spoke with the patient's daughter who works in the medical field and stated that the patient used to have syncopal episodes during times of extreme grief/tragedy in the family, however this time there has not been any preceding events or stressful moments, and the patient has never had chest pain or such difficulty regaining consciousness. Past Medical/Surgical History Medical Problems: (1) HTN (2) Dyslipidemia (3) Migraine headaches (4) Severe Osteoporosis (5) Depression Surgical Problems: (1) Hx of appendectomy (2) Hx of bilateral oophorectomy and total hysterectomy (3) Breast biopsy Family History FH: cancer FH: diabetes mellitus FH: gallbladder disease FH: heart disease FH: hypertension FH: kidney disease FH: lung disease FH: stroke Social History Smoking Status: Never Smoker Smokeless Tobacco Use: No Alcohol Use: none Drug Use: none Marital Status: Housing status: lives with family Occupational Status: unemployed Allergies Coded Allergies: Lemon (Verified Allergy, Intermediate, swelling, 09/19/17) [place] (Unverified Adverse Reaction, Unknown, swelling, 09/19/17) Home Medications Scheduled Aspirin (Aspirin Ec), 81 MG PO QPM Cholecalciferol (D-5000), 1 TAB PO DAILY Enalapril (Vasotec), 20 MG PO DAILY Pantoprazole (Protonix), 40 MG PO DAILY Paroxetine (Paxil), 20 MG PO DAILY Propranolol (Inderal), 80 MG PO BID Simvastatin (Zocor), 20 MG PO DAILY Topiramate (Topamax), 50 MG PO HS Review of Systems Constitutional: + chills, No fever, No sweats, No weight loss Eyes: + redness, No worsening of vision, No diplopia ENT: No hearing loss, No nasal symptoms, No sore throat, No trouble swallowing Respiratory: No cough, No wheezing, No shortness of breath Cardiovascular: + chest pain, + palpitations, No edema Abdomen: No pain, No nausea, No vomiting, No diarrhea, No constipation Musculoskeletal: + joint pain, No muscle pain, No swelling Genitourinary - Female: No dysuria, No urinary frequency, No urinary urgency, No urinary incontinence Neurologic: + numbness/tingling, No memory loss, No paralysis, No weakness Psychiatric: No depression symptoms, No anxiety, No insomnia Endocrine: No fatigue, No excessive thirst, No excessive urination Hematologic / Lymphatic: No abnormal bleeding/bruising, No clotting problems, No swollen lymph nodes Integumentary: No rash, No itch, No new/changing skin lesions Physical Exam Vital Signs Date Time Temp Pulse Resp B/P (MAP) Pulse Ox O2 Delivery O2 Flow Rate FiO2 09/20/17 01:34 36.5 74 16 144/90 97 09/20/17 01:31 74 16 144/90 97 Room Air 09/20/17 01:01 74 18 139/105 97 Room Air 09/20/17 00:35 76 23 149/84 97 Room Air 09/20/17 00:01 76 23 150/88 97 Room Air 09/19/17 23:31 79 16 150/84 97 Room Air 09/19/17 23:01 81 21 163/100 97 Room Air 09/19/17 22:50 83 18 178/102 97 Room Air 09/19/17 22:50 83 20 178/102 100 Room Air 09/19/17 22:43 99 Room Air 09/19/17 22:39 86 20 178/88 99 Room Air 09/19/17 22:23 80 16 175/129 99 Room Air 09/19/17 22:15 82 09/19/17 22:07 98 Room Air 09/19/17 22:02 36.5 77 18 205/123 99 Room Air General Appearance: WD/WN, no apparent distress Head: normocephalic, atraumatic Eyes: PERRL, EOMI, sclerae normal (mild conjunctival injection) ENT: hearing grossly normal Neck: supple, no JVD, no carotid bruits, trachea midline Respiratory/Chest: chest non-tender, lungs clear, normal breath sounds, no respiratory distress, no accessory muscle use Cardiovascular: regular rate, rhythm, no edema, no gallop, no JVD, no murmur Abdomen/GI: normal bowel sounds, non tender, soft, no organomegaly Back: no CVA tenderness, + paravertebral tenderness Extremities/Musculoskelatal: no calf tenderness, normal capillary refill, no pedal edema 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, no motor/sensory deficits, alert, normal mood/affect, oriented x 3 Skin: normal color, warm/dry, no rash Diagnostics Laboratory Results Results Past 24 Hours Test 09/19/17 22:45 09/19/17 22:48 Range/Units Bedside Hemoglobin 10.9 12.0-16.0 g/dl Bedside Hematocrit 32 37-47 % Bedside Sodium 140 135-144 mEq/L Bedside Potassium 3.6 3.3-5.0 mEq/L Bedside Chloride 103 101-112 mEq/L Bedside Total CO2 23 24-31 mEq/l Anion Gap 18.0 7.0 3-11 mmol/L Bedside Blood Urea Nitrogen 16 7-18 mg/dl Bedside Creatinine 0.6 0.6-1.3 mg/dl Bedside Glucose (other) 121 70-99 mg/dl Bedside Ionized Calcium (Blanca) 1.18 1.12-1.32 mmol/l White Blood Count 9.10 4.8-10.8 K/uL Red Blood Count 4.02 4.2-5.4 M/uL Hemoglobin 12.1 12.0-16.0 g/dL Hematocrit 33.9 37-47 % Mean Corpuscular Volume 84.3 80-100 fL Mean Corpuscular Hemoglobin 30.1 25-34 pg Mean Corpuscular Hemoglobin Concent 35.7 32-36 g/dl Platelet Count 269 130-400 K/uL Mean Platelet Volume 9.4 7.4-10.4 fL Neutrophils (%) (Auto) 41.4 % Lymphocytes (%) (Auto) 50.7 % Monocytes (%) (Auto) 5.7 % Eosinophils (%) (Auto) 1.8 % Basophils (%) (Auto) 0.2 % Neutrophils # (Auto) 3.77 1.4-6.5 K/uL Lymphocytes # (Auto) 4.61 1.2-3.4 K/uL Monocytes # (Auto) 0.52 0.11-0.59 K/uL Eosinophils # (Auto) 0.16 0-0.5 K/uL Basophils # (Auto) 0.02 0-0.2 K/uL RDW Standard Deviation 39.6 36.4-46.3 fL RDW Coefficient of Variation 13.0 11.5-14.5 % Immature Granulocyte % (Auto) 0.2 % Immature Granulocyte # (Auto) 0.02 0.00-0.02 K/uL Prothrombin Time 10.7 9.0-12.0 SECONDS Prothromb Time International Ratio 1.0 0.9-1.1 Activated Partial Thromboplast Time 26.4 21.0-31.0 SECONDS Partial Thromboplastin Ratio 1.0 Sodium Level 137 136-145 mmol/L Potassium Level 3.9 3.5-5.1 mmol/L Chloride Level 105 98-107 mmol/L Carbon Dioxide Level 25 21-32 mmol/L Blood Urea Nitrogen 16 7-18 mg/dl Creatinine 0.68 0.60-1.20 mg/dl Est Creatinine Clear Calc Drug Dose 92.2 ml/min Estimated GFR () 113.3 Estimated GFR (Non- 97.8 BUN/Creatinine Ratio 23.3 10-20 Random Glucose 122 70-99 mg/dl Calcium Level 8.5 8.5-10.1 mg/dl Total Bilirubin 0.3 0.2-1 mg/dl Direct Bilirubin < 0.1 0-0.2 mg/dl Aspartate Amino Transf (AST/SGOT) 20 15-37 U/L Alanine Aminotransferase (ALT/SGPT) 34 12-78 U/L Alkaline Phosphatase 82 45-117 U/L Troponin I < 0.015 0-0.045 ng/ml Total Protein 7.0 6.4-8.2 gm/dl Albumin 3.3 3.4-5.0 gm/dl Lipase 215 73-393 U/L Normal EKG Impression Assessment and Plan CHEST PAIN: -sudden onset, CTA negative for dissection -initial troponin negative, will repeat x2 -TTE -repeat EKG with chest pain -symptoms improved with NTG -significant family hx of cardiac disease and stroke in 2 of her sisters -continue daily aspirin -check orthostatics -check lipid panel and HbA1c SYNCOPE WITH LUE WEAKNESS/NUMBNESS AND DIZZINESS: -symptoms have resolved and have not recurred -complains of a residual CAPELLAN now -no prior history of LOC with syncope, generally patient had near syncope but none for the last 1 year -CT head mentions a tiny meningioma but not of significance with regard to the current symptoms -will obtain stroke work up including MRI brain, MRA neck -patient's daughter reports the patient underwent an MRI of her cervical spine in 2014 which was completely negative, would consider repeating if above workup is negative -PT/OT eval -continue ASA; may consider plavix depending on results of MRI DYSLIPIDEMIA: -continue statin HTN: -stable -continue home meds MIGRAINES: -continue topamax and inderal OSTEOPOROSIS: -continue with vit. D supplement Level of Care Telemetry Resuscitation Status FULL RESUSCITATION VTE Prophylaxis VTE Risk Assessment Done? Y/N: Yes Risk Level: Moderate Given or contraindicated: Enoxaparin (Lovenox)SQ
[2017-09-20 03:36] VITALS: BP 161/92; TEMP 36.8; O2SAT 99; Ht 162.6 cm; Wt 72.5 kg
[2017-09-20] MEDS ORDERED: GADAVIST IV PRN (04:00)
--- NOTE | 2017-09-20 06:57 | DIAGNOSTIC IMAGING REPORT ---
CHEST ONE VIEW PORTABLE CLINICAL HISTORY: Atypical chest pain COMPARISON STUDY: No previous studies for comparison. FINDINGS: The cardiac and mediastinal contours are normal. There is no evidence of focal pulmonary consolidation. There is no evidence of failure. No pleural effusions are visualized.[ IMPRESSION: No active disease in the chest. Electronically signed by: Leoncio Crabtree M.D. 09/20/2017 6:55 AM Dictated Date/Time: 09/20/2017 6:55 AM
--- NOTE | 2017-09-20 06:59 | DIAGNOSTIC IMAGING REPORT ---
BRAIN COMBO HISTORY: 56 years-old Female Stroke acute strokelike symptoms COMPARISON: CT head 09/19/2017 TECHNIQUE: Multiplanar multisequence MRI the brain was obtained both with and without the use of 7.5 mL Gadavist FINDINGS: There is no restricted diffusion to suggest acute infarction. Midline structures including the corpus callosum, brainstem, optic chiasm, pituitary and pineal glands are unremarkable the sagittal T1 series. The major flow voids at the level of the skull base appear patent. Mastoid air cells are generally clear. The paranasal sinuses are clear. Scalp, orbits and soft tissues are within normal limits. There is no acute intracranial hemorrhage, midline shift or hydrocephalus. There are several scattered punctate and subcentimeter foci of T2/FLAIR prolongation within the subcortical and periventricular white matter suggesting chronic microvascular ischemic changes. The coronal FLAIR images are motion degraded. There is an avidly enhancing dural based homogeneous lesion which demonstrates decreased T1 and decreased T2 signal measuring 12 x 7 x 7 mm adjacent to the left frontal convexity nicely seen on image 6 series 20 and image 18 series 19. This causes only minimal mass effect upon the adjacent left frontal lobe cortex without associated edema or other focal abnormal amount. IMPRESSION: 1. No acute intracranial abnormality identified. Negative for infarction or abnormal intra-axial enhancement. 2. Avidly enhancing dural based extra-axial lesion adjacent to the left frontal convexity measuring up to 12 mm demonstrates imaging characteristics most compatible with a meningioma. No significant mass effect or midline shift. 3. Probable mild chronic microvascular ischemic changes. The above report was generated using voice recognition software. It may contain grammatical, syntax or spelling errors. Electronically signed by: Angelito Noble M.D. 09/20/2017 6:58 AM Dictated Date/Time: 09/20/2017 6:52 AM
[2017-09-20 07:11] LABS: HEMATOCRIT 34.3 % (37-47); HEMOGLOBIN 12.4 g/dL (12.0-16.0); MEAN CELL VOLUME 84.7 fL (80-100); MEAN CORPUSCULAR HEMOGLOBIN 30.6 pg (25-34); MEAN CORPUSCULAR HGB CONC 36.2 g/dl (32-36); MEAN PLATELET VOLUME 9.6 fL (7.4-10.4); PLATELET COUNT 246 K/uL (130-400); RED CELL DISTRIBUTION WIDTH SD 39.8 fL (36.4-46.3); WHITE BLOOD COUNT 7.95 K/uL (4.8-10.8)
[2017-09-20 07:36] LABS: BASO % 0.3 %; BASO ABS # 0.02 K/uL (0-0.2); EOS % 1.8 %; EOS ABS # 0.14 K/uL (0-0.5); IG# 0.02 K/uL (0.00-0.02); LYMPH % 51.8 %; LYMPH ABS # 4.12 K/uL (1.2-3.4); MONO % 5.3 %; MONO ABS # 0.42 K/uL (0.11-0.59); NEUT % 40.5 %; NEUT ABS # 3.23 K/uL (1.4-6.5)
--- NOTE | 2017-09-20 07:37 | DIAGNOSTIC IMAGING REPORT ---
MRA NECK COMBO CLINICAL HISTORY: 56 years-old Female presenting with pain in the left arm radiating from the upper arm to the hand, loss of consciousness, left chest and posterior back pain. TECHNIQUE: MR angiography of the neck was performed before and after the administration of intravenous contrast. 3-D volumetric and/or maximum intensity projection (MIP) images were subsequently reconstructed for review. IV contrast: 7.5 mL of Gadavist. Stenosis measurements were based on NASCET-like criteria. COMPARISON: None. FINDINGS: Three-vessel aortic arch with patent origins of the cervical vessels. Bilateral common and internal carotid arteries grossly patent though image quality is degraded by motion artifact. Codominant vertebral arteries with grossly patent origins and courses. Venous structures patent. Limited intracranial evaluation within normal limits. IMPRESSION: 1. Limited examination secondary to motion artifact. Grossly patent cervical vessels. Electronically signed by: Jony Arguelles M.D. 09/20/2017 7:36 AM Dictated Date/Time: 09/20/2017 6:56 AM
[2017-09-20 07:43] LABS: CHOLESTEROL 148 mg/dl (0-200); LDL CHOLESTEROL CALCULATED 69 mg/dl
[2017-09-20 08:31] LABS: HEMOGLOBIN A1C 6.1 % (4.5-5.6)
--- NOTE | 2017-09-20 09:07 | ECHOCARDIOGRAM REPORT ---
*NOTICE TO RECEIVING [employer] This information is strictly Confidential and protected under [place] law. [place] law prohibits you from making any further disclosure of this information unless further disclosure is expressly permitted by the written consent of the person to whom it pertains or is authorized by law. A general authorization for the release of medical or other information is not sufficient for this purpose. Hospital accepts no responsibility if the information is made available to any other person, INCLUDING THE PATIENT. Interpretation Summary * Name: ELIAS ANGELES Study Date: 09/20/2017 07:14 AM BP: 144/90 mmHg * Patient Location: .2T\S\E215\S\1 HR: 74 * : 1960 (M/d/yyyy) Gender: Female Height: 64 in * Age: 56 yrs Ethnicity: Weight: 167 lb * Ordering Physician: Emilie Fernandez * Referring Physician: Self, Referred * Performed By: Pineda Langford RCS * * Reason For Study: Cerebral Ischemia/Embolus * BSA: 1.8 m2 * -- Conclusions -- * Small, underfilled LV chamber size with normal wall thickness. * Hyperdynamic LV systolic function, EF >70%. * No segmental left ventricular wall motion abnormalities are noted. * Grade II diastolic dysfunction. * No significant valvular pathology. * Intact interatrial septum. * Small, loculated anterior pericardial effusion with stranding to suggest chronicity. No hemodynamic compromise. Procedure Details * A complete two-dimensional transthoracic echocardiogram was performed (2D, M-mode, Doppler and color flow Doppler). * A saline contrast injection was performed to assess for cardiac shunting. * The injection was performed through an intravenous line in the left arm. * The attending nurse who injected the saline contrast was Harriet Rush RN. * A total of 20 cc of agitated saline was given. Left Ventricle * The left ventricular cavity is small. * There is normal left ventricular wall thickness. * Ejection Fraction = >70 %. * The left ventricle is hyperdynamic. * No segmental left ventricular wall motion abnormalities are noted. * The left ventricular wall motion is normal. Right Ventricle * The right ventricular cavity size is normal (basal dimension <4.2 cm in right ventricular apical 4-chamber view). * The right ventricular systolic function is normal as assessed by tricuspid annular plane systolic excursion (TAPSE) (normal >1.5 cm). Atria * The left atrial size is normal. * Right atrial size is normal. * The interatrial septum is intact with no evidence for an atrial septal defect. Mitral Valve * The mitral valve is normal in structure and function. Tricuspid Valve * The tricuspid valve is normal in structure and function. Aortic Valve * The aortic valve is normal in structure and function. Pulmonic Valve * The pulmonary valve is not well seen, but the Doppler examination is normal without significant regurgitation or stenosis. Great Vessels * The aortic root and proximal ascending aorta are normal sized. Pericardium/Pleural * Small pericardial effusion. * Pericardial fibrinous strands are noted. * A loculated pericardial effusion is noted. Left Ventricular Diastolic Function * Diastolic dysfunction, Grade II (pseudonormalization pattern). MMode 2D Measurements and Calculations IVSd 1.0 cm IVSs 1.2 cm LVIDd 3.5 cm LVIDs 2.5 cm LVPWd 1.0 cm LVPWs 1.2 cm IVS/LVPW 1.0 FS 28.5 % EDV(Teich) 51.3 ml ESV(Teich) 22.6 ml EF(Teich) 56.0 % EDV(cubed) 43.3 ml ESV(cubed) 15.8 ml EF(cubed) 63.4 % % IVS thick 17.3 % % LVPW thick 19.9 % LV mass(C)d 105.6 grams LV mass(C)dI 58.3 grams/m\S\2 LV mass(C)s 85.9 grams LV mass(C)sI 47.4 grams/m\S\2 SV(Teich) 28.7 ml SI(Teich) 15.8 ml/m\S\2 SV(cubed) 27.5 ml SI(cubed) 15.2 ml/m\S\2 Ao root diam 3.1 cm Ao root area 7.4 cm\S\2 ACS 1.5 cm LA dimension 3.5 cm asc Aorta Diam 2.7 cm LA/Ao 1.1 EDV(MOD-sp4) 59.0 ml ESV(MOD-sp4) 27.0 ml EF(MOD-sp4) 54.2 % EDV(MOD-sp2) 48.2 ml ESV(MOD-sp2) 14.1 ml EF(MOD-sp2) 70.7 % SV(MOD-sp4) 32.0 ml SI(MOD-sp4) 17.7 ml/m\S\2 SV(MOD-sp2) 34.1 ml SI(MOD-sp2) 18.8 ml/m\S\2 Doppler Measurements and Calculations MV E max deyvi 79.6 cm/sec MV A max deyvi 72.9 cm/sec MV E/A 1.1 MV P1/2t max deyvi 96.9 cm/sec MV P1/2t 60.9 msec MVA(P1/2t) 3.6 cm\S\2 MV dec slope 466.5 cm/sec\S\2 MV dec time 0.19 sec Ao V2 max 109.4 cm/sec Ao max PG 4.8 mmHg Ao max PG (full) 2.2 mmHg LV V1 max PG 2.6 mmHg LV V1 max 80.0 cm/sec PA V2 max 85.1 cm/sec PA max PG 2.9 mmHg PI max deyvi 130.7 cm/sec PI max PG 6.8 mmHg PI dec slope 91.4 cm/sec\S\2 PI P1/2t 418.7 msec TR max deyvi 197.4 cm/sec
[2017-09-20 09:39] VITALS: BP 126/81; PULSE 78; TEMP 36.7; O2SAT 99
--- NOTE | 2017-09-20 10:14 | Progress Note ---
Internal Med Progress Note Date of Service: Sep 20, 2017. Provider Documentation: SUBJECTIVE: Seen and examined at bedside Doing well this morning States chest pain, LUE numbness, Headache resolved Denies SOB, dizziness, nausea No other complaints Family at bedside OBJECTIVE: Vital Signs-as noted below Physical Exam: General Appearance:Moderately built and nourished, no apparent distress Head: normocephalic, Atraumatic Eyes: normal inspection, EOMI, PERRL Neck: supple, Trachea midline Respiratory/Chest: Normal breath sounds, CTA Cardiovascular: S1, S2, No murmur Abdomen/GI:Soft, Non tender, Bowel sounds present Extremities/Musculoskelatal:normal inspection, no edema Neurologic/Psych:AAOX3, grossly no focal neurological deficits Skin: normal color, warm Lab data as noted below. ASSESSMENT & PLAN: Chest Pain: CTA negative for dissection ECHO:No segmental left ventricular wall motion abnormalities, other findings noted Troponin X 3: Negative A1C:6.1 Lipid panel, TSH, Lipase Normal EKG: No ST-T wave changes Continue Aspirin, BB, statin Cardiology Consulted Syncope Dizziness, Headache, LUE weakness, and numbness resolved H/O near syncope in past MRI Brain:No acute findings, Meningioma Left frontal region noted Neck MRA:. Limited examination secondary to motion artifact. Grossly patent cervical vessels Monitor in Tele Check Orthostatics, Neuro checks Continue ASA, satins Neurology Consulted PT/OT Dyslipidemia: continue statin Hypertensive Urgency: H/O HTN BP much improved continue home meds B/L Breast Nodules: Incidental finding on CTA Needs follow up with OBGYN as outpatient H/O Migraines: continue Topamax, propranolol Osteoporosis: continue Vit D supplement DVT Px: Lovenox SQ Code Status: Full Code Disposition: Monitor in Telemetry PROCEDURES: Neck MRA: Limited examination secondary to motion artifact. Grossly patent cervical vessels CTA: 1. No evidence for an aortic dissection. 2. Subtle hypodensity at the apex of the left ventricle. This raises the possibility of an age-indeterminate subendocardial infarct. Clinical correlation recommended. 3. Bilateral breast nodules. The right breast nodule remains stable. Follow-up nonemergent mammogram/ultrasound is recommended for further evaluation. 4. Additional findings as described above. MRI Brain: 1. No acute intracranial abnormality identified. Negative for infarction or abnormal intra-axial enhancement. 2. Avidly enhancing dural based extra-axial lesion adjacent to the left frontal convexity measuring up to 12 mm demonstrates imaging characteristics most compatible with a meningioma. No significant mass effect or midline shift. 3. Probable mild chronic microvascular ischemic changes. ECHO: * Small, underfilled LV chamber size with normal wall thickness. * Hyperdynamic LV systolic function, EF >70%. * No segmental left ventricular wall motion abnormalities are noted. * Grade II diastolic dysfunction. * No significant valvular pathology. * Intact interatrial septum. * Small, loculated anterior pericardial effusion with stranding to suggest chronicity. No hemodynamic compromise. Vital Signs: Date Time Temp Pulse Resp B/P (MAP) Pulse Ox O2 Delivery O2 Flow Rate FiO2 09/20/17 09:39 36.7 78 16 126/81 (96) 99 Room Air 09/20/17 03:36 36.8 70 161/92 99 Room Air 09/20/17 01:34 36.5 74 16 144/90 97 09/20/17 01:31 74 16 144/90 97 Room Air 09/20/17 01:01 74 18 139/105 97 Room Air 09/20/17 00:35 76 23 149/84 97 Room Air 09/20/17 00:01 76 23 150/88 97 Room Air 09/19/17 23:31 79 16 150/84 97 Room Air 09/19/17 23:01 81 21 163/100 97 Room Air 09/19/17 22:50 83 18 178/102 97 Room Air 09/19/17 22:50 83 20 178/102 100 Room Air 09/19/17 22:43 99 Room Air 09/19/17 22:39 86 20 178/88 99 Room Air 09/19/17 22:23 80 16 175/129 99 Room Air 09/19/17 22:15 82 09/19/17 22:07 98 Room Air 09/19/17 22:02 36.5 77 18 205/123 99 Room Air Lab Results: Results Past 24 Hours Test 09/19/17 22:45 09/19/17 22:48 09/20/17 06:56 Range/Units Bedside Hemoglobin 10.9 12.0-16.0 g/dl Bedside Hematocrit 32 37-47 % Bedside Sodium 140 135-144 mEq/L Bedside Potassium 3.6 3.3-5.0 mEq/L Bedside Chloride 103 101-112 mEq/L Bedside Total CO2 23 24-31 mEq/l Anion Gap 18.0 7.0 3-11 mmol/L Bedside Blood Urea Nitrogen 16 7-18 mg/dl Bedside Creatinine 0.6 0.6-1.3 mg/dl Bedside Glucose (other) 121 70-99 mg/dl Bedside Ionized Calcium (Blanca) 1.18 1.12-1.32 mmol/l White Blood Count 9.10 7.95 4.8-10.8 K/uL Red Blood Count 4.02 4.05 4.2-5.4 M/uL Hemoglobin 12.1 12.4 12.0-16.0 g/dL Hematocrit 33.9 34.3 37-47 % Mean Corpuscular Volume 84.3 84.7 80-100 fL Mean Corpuscular Hemoglobin 30.1 30.6 25-34 pg Mean Corpuscular Hemoglobin Concent 35.7 36.2 32-36 g/dl Platelet Count 269 246 130-400 K/uL Mean Platelet Volume 9.4 9.6 7.4-10.4 fL Neutrophils (%) (Auto) 41.4 40.5 % Lymphocytes (%) (Auto) 50.7 51.8 % Monocytes (%) (Auto) 5.7 5.3 % Eosinophils (%) (Auto) 1.8 1.8 % Basophils (%) (Auto) 0.2 0.3 % Neutrophils # (Auto) 3.77 3.23 1.4-6.5 K/uL Lymphocytes # (Auto) 4.61 4.12 1.2-3.4 K/uL Monocytes # (Auto) 0.52 0.42 0.11-0.59 K/uL Eosinophils # (Auto) 0.16 0.14 0-0.5 K/uL Basophils # (Auto) 0.02 0.02 0-0.2 K/uL RDW Standard Deviation 39.6 39.8 36.4-46.3 fL RDW Coefficient of Variation 13.0 13.0 11.5-14.5 % Immature Granulocyte % (Auto) 0.2 0.3 % Immature Granulocyte # (Auto) 0.02 0.02 0.00-0.02 K/uL Prothrombin Time 10.7 9.0-12.0 SECONDS Prothromb Time International Ratio 1.0 0.9-1.1 Activated Partial Thromboplast Time 26.4 21.0-31.0 SECONDS Partial Thromboplastin Ratio 1.0 Sodium Level 137 136-145 mmol/L Potassium Level 3.9 3.5-5.1 mmol/L Chloride Level 105 98-107 mmol/L Carbon Dioxide Level 25 21-32 mmol/L Blood Urea Nitrogen 16 7-18 mg/dl Creatinine 0.68 0.60-1.20 mg/dl Est Creatinine Clear Calc Drug Dose 92.2 ml/min Estimated GFR () 113.3 Estimated GFR (Non- 97.8 BUN/Creatinine Ratio 23.3 10-20 Random Glucose 122 70-99 mg/dl Calcium Level 8.5 8.5-10.1 mg/dl Total Bilirubin 0.3 0.2-1 mg/dl Direct Bilirubin < 0.1 0-0.2 mg/dl Aspartate Amino Transf (AST/SGOT) 20 15-37 U/L Alanine Aminotransferase (ALT/SGPT) 34 12-78 U/L Alkaline Phosphatase 82 45-117 U/L Bedside Troponin I < 0.030 0-0.045 ng/ml Troponin I < 0.015 < 0.015 0-0.045 ng/ml Total Protein 7.0 6.4-8.2 gm/dl Albumin 3.3 3.4-5.0 gm/dl Lipase 215 73-393 U/L Erythrocyte Sedimentation Rate 15 0-21 mm/hr Estimated Average Glucose 128 mg/dl Hemoglobin A1c 6.1 4.5-5.6 % Triglycerides Level 135 0-150 mg/dl Cholesterol Level 148 0-200 mg/dl HDL Cholesterol 52 mg/dl LDL Cholesterol, Calculated 69 mg/dl VLDL Cholesterol, Calculated 27 mg/dl Cholesterol/HDL Ratio 2.8 Thyroid Stimulating Hormone (TSH) 1.470 0.300-4.500 uIu/ml
[2017-09-20] MEDS: PAROXETINE 20 MG TAB PO SCH (10:19)
[2017-09-20] MEDS: SIMVASTATIN 20 MG TAB PO SCH (10:19)
[2017-09-20] MEDS: PROPRANOLOL HCL 80 MG TAB PO SCH ×2 (10:20→19:59)
[2017-09-20] MEDS: CHOLECALCIFEROL 1000 INTER.UNIT TAB PO SCH (10:20)
[2017-09-20] MEDS: ENALAPRIL MALEATE 10 MG TAB PO SCH (10:20)
[2017-09-20] MEDS: PANTOprazole SOD 40 MG TAB PO SCH (10:20)
[2017-09-20 11:34] VITALS: BP 135/85; PULSE 76; TEMP 36.7; O2SAT 98
--- NOTE | 2017-09-20 13:32 | Neurology Consultation ---
Neurology Consultation Date of Consultation: Sep 20, 2017. Attending Physician: Oracio Quach MD Primary Care Physician: Jeff Reed M.D. Reason for Consultation: left sided weakness History of Present Illness Source: patient, family Gini is a 56 yo female who was brought to the ER for complaints of severe chest pain and syncope. She was accompanied by her son-in-law and family member who state that the patient began to complain of pain around 6 PM while sitting on the couch, they state that later in the evening the patient slumped over next to her family member and they thought she was taking rest, however she had her eyes closed and was completely unresponsive. She had her mouth open and tongue hanging out, but did not seem to have any eye deviation, frothing, or loss of bowel or bladder control. Her came down and thru some water on her face and in her mouth and she came around. She currently does not have a headache but she had neck pain. She is also very lethargic but the son in law states she didn't get any sleep last night. Her daughter had reported a syncopal episode under grief and tragedy the son in law reports her sister recently in [place] but they are not sure if it was heart or brain issues. Currently she is sleeping but awakes easily. She states she is not having a headache but she does have some neck pain and stiffness. She does not speech much Hungarian but she does understand and follows commands, denies CP, SOB, abdominal pain, weakness, numbness tingling. N,V. Past Medical/Surgical History Medical Problems: (1) Chest pain Status: Acute (2) Hydronephrosis, right Status: Acute (3) Syncope Status: Acute (4) Upper abdominal pain Status: Acute Social History Smokeless Tobacco Use: No Alcohol Use: none Drug Use: none Marital Status: Housing Status: lives with family Occupation Status: unemployed Allergies Coded Allergies: [place] (Verified Allergy, Intermediate, swelling, 09/19/17) [place] (Unverified Adverse Reaction, Unknown, swelling, 09/19/17) Current Inpatient Medications Current Inpatient Medications Medications (Trade) Dose Ordered Sig/Antonieta Route Start Time Stop Time Status Last Admin Dose Admin Ioversol (Optiray 320) 111 ml UD PRN IV 09/19/17 22:30 09/23/17 22:29 Miscellaneous Information (Pharmacist Discharge Med Rec Consult) 1 ea UD PRN N/A 09/20/17 01:15 10/20/17 01:14 Enoxaparin Sodium (Lovenox Inj) 40 mg DAILY SQ 09/20/17 10:49 10/20/17 10:48 Acetaminophen (Tylenol Tab) 650 mg Q4H PRN PO 09/20/17 01:15 10/20/17 01:14 Ondansetron HCl (Zofran Inj) 4 mg Q6H PRN IV 09/20/17 01:15 10/20/17 01:14 Polyethylene (Miralax Powder Packet) 17 gm DAILY PRN PO 09/20/17 01:15 10/20/17 01:14 Aspirin (Ecotrin Tab) 81 mg QPM PO 09/20/17 21:00 10/20/17 20:59 Enalapril Maleate (Vasotec Tab) 20 mg DAILY PO 09/20/17 09:00 10/20/17 08:59 09/20/17 10:20 20 MG Pantoprazole Sodium (Protonix Tab) 40 mg DAILY PO 09/20/17 09:00 10/20/17 08:59 09/20/17 10:20 40 MG Paroxetine HCl (pAXil TAB) 20 mg DAILY PO 09/20/17 09:00 10/20/17 08:59 09/20/17 10:19 20 MG Propranolol HCl (Inderal Tab) 80 mg BID PO 09/20/17 09:00 10/20/17 08:59 09/20/17 10:20 80 MG Simvastatin (Zocor Tab) 20 mg DAILY PO 09/20/17 09:00 10/20/17 08:59 09/20/17 10:19 20 MG Topiramate (Topamax Tab) 50 mg HS PO 09/20/17 21:00 10/20/17 20:59 Cholecalciferol (Vitamin D Tab) 5,000 inter.unit DAILY PO 09/20/17 09:00 10/20/17 08:59 09/20/17 10:20 5,000 INTER.UNIT Gadobutrol (Gadavist) 7.5 mmol UD PRN IV 09/20/17 04:00 09/24/17 03:59 Physical Exam Vital Signs (Past 24 Hrs): Date Time Temp Pulse Resp B/P (MAP) Pulse Ox O2 Delivery O2 Flow Rate FiO2 09/20/17 11:34 36.7 76 16 135/85 (102) 98 Room Air 09/20/17 09:39 36.7 78 16 126/81 (96) 99 Room Air 09/20/17 08:00 Room Air 09/20/17 03:36 36.8 70 161/92 99 Room Air 09/20/17 01:34 36.5 74 16 144/90 97 09/20/17 01:31 74 16 144/90 97 Room Air 09/20/17 01:01 74 18 139/105 97 Room Air 09/20/17 00:35 76 23 149/84 97 Room Air 09/20/17 00:01 76 23 150/88 97 Room Air 09/19/17 23:31 79 16 150/84 97 Room Air 09/19/17 23:01 81 21 163/100 97 Room Air 09/19/17 22:50 83 18 178/102 97 Room Air 09/19/17 22:50 83 20 178/102 100 Room Air 09/19/17 22:43 99 Room Air 09/19/17 22:39 86 20 178/88 99 Room Air 09/19/17 22:23 80 16 175/129 99 Room Air 09/19/17 22:15 82 09/19/17 22:07 98 Room Air 09/19/17 22:02 36.5 77 18 205/123 99 Room Air Physical Exam: Constitutional: appearance nourished, healthy and normal, sleeping when entering room aroused easily Ears, Nose, Mouth and Throat: mucous membranes moist, no injection and skin normal, eyes normal Cardiovascular: normal S-1 and S-2 and regular rate and rhythm Respiratory: clear to auscultation (CTA) and no rales, rhonchi or wheeze Musculoskeletal: no peripheral edema and good distal pulses Skin: no stigmata of neurocutaneous disease noted and normal and intact Eyes: extraocular muscles intact (EOMI) and pupils equal, round and reactive to light (PERRL) NEUROLOGIC EXAMINATION: Mental status: Alert and interactive Oriented to person Speech does not speech Hungarian but does not appear to have trouble speaking Cranial Nerves smile eye brow raise symmetric Reflexes: Deep tendon reflexes were symmetrical and graded 2/5. Sensory: to cool or light touch Coordination: finger to nose no bi pass Gait/Stance: Posture lying in bed Motor: Negative for pronator drift of out stretched arms with eyes closed. Strength: biceps triceps hand bit tripoler bilaterally 5/5 hip flex plantar flex ext 5/5 Laboratory Results Past 24 Hours: 09/20/17 06:56 Red Blood Count 4.05, Mean Corpuscular Volume 84.7, Mean Corpuscular Hemoglobin 30.6, Mean Corpuscular Hemoglobin Concent 36.2, Mean Platelet Volume 9.6, Neutrophils (%) (Auto) 40.5, Lymphocytes (%) (Auto) 51.8, Monocytes (%) (Auto) 5.3, Eosinophils (%) (Auto) 1.8, Basophils (%) (Auto) 0.3, Neutrophils # (Auto) 3.23, Lymphocytes # (Auto) 4.12, Monocytes # (Auto) 0.42, Eosinophils # (Auto) 0.14, Basophils # (Auto) 0.02 09/19/17 22:48 Test 09/19/17 22:45 09/19/17 22:48 09/20/17 06:56 Bedside Hemoglobin 10.9 g/dl (12.0-16.0) Bedside Hematocrit 32 % (37-47) Bedside Sodium 140 mEq/L (135-144) Bedside Potassium 3.6 mEq/L (3.3-5.0) Bedside Chloride 103 mEq/L (101-112) Bedside Total CO2 23 mEq/l (24-31) Bedside Blood Urea Nitrogen 16 mg/dl (7-18) Bedside Creatinine 0.6 mg/dl (0.6-1.3) Bedside Glucose (other) 121 mg/dl (70-99) Bedside Ionized Calcium (Blanca) 1.18 mmol/l (1.12-1.32) Prothrombin Time 10.7 SECONDS (9.0-12.0) Prothromb Time International Ratio 1.0 (0.9-1.1) Activated Partial Thromboplast Time 26.4 SECONDS (21.0-31.0) Partial Thromboplastin Ratio 1.0 Anion Gap 7.0 mmol/L (3-11) Est Creatinine Clear Calc Drug Dose 92.2 ml/min Estimated GFR () 113.3 Estimated GFR (Non- 97.8 BUN/Creatinine Ratio 23.3 (10-20) Calcium Level 8.5 mg/dl (8.5-10.1) Total Bilirubin 0.3 mg/dl (0.2-1) Direct Bilirubin < 0.1 mg/dl (0-0.2) Aspartate Amino Transf (AST/SGOT) 20 U/L (15-37) Alanine Aminotransferase (ALT/SGPT) 34 U/L (12-78) Alkaline Phosphatase 82 U/L (45-117) Bedside Troponin I < 0.030 ng/ml (0-0.045) Total Protein 7.0 gm/dl (6.4-8.2) Albumin 3.3 gm/dl (3.4-5.0) Lipase 215 U/L (73-393) White Blood Count 7.95 K/uL (4.8-10.8) Red Blood Count 4.05 M/uL (4.2-5.4) Hemoglobin 12.4 g/dL (12.0-16.0) Hematocrit 34.3 % (37-47) Mean Corpuscular Volume 84.7 fL (80-100) Mean Corpuscular Hemoglobin 30.6 pg (25-34) Mean Corpuscular Hemoglobin Concent 36.2 g/dl (32-36) Platelet Count 246 K/uL (130-400) Mean Platelet Volume 9.6 fL (7.4-10.4) Neutrophils (%) (Auto) 40.5 % Lymphocytes (%) (Auto) 51.8 % Monocytes (%) (Auto) 5.3 % Eosinophils (%) (Auto) 1.8 % Basophils (%) (Auto) 0.3 % Neutrophils # (Auto) 3.23 K/uL (1.4-6.5) Lymphocytes # (Auto) 4.12 K/uL (1.2-3.4) Monocytes # (Auto) 0.42 K/uL (0.11-0.59) Eosinophils # (Auto) 0.14 K/uL (0-0.5) Basophils # (Auto) 0.02 K/uL (0-0.2) RDW Standard Deviation 39.8 fL (36.4-46.3) RDW Coefficient of Variation 13.0 % (11.5-14.5) Immature Granulocyte % (Auto) 0.3 % Immature Granulocyte # (Auto) 0.02 K/uL (0.00-0.02) Erythrocyte Sedimentation Rate 15 mm/hr (0-21) Estimated Average Glucose 128 mg/dl Hemoglobin A1c 6.1 % (4.5-5.6) Troponin I < 0.015 ng/ml (0-0.045) Triglycerides Level 135 mg/dl (0-150) Cholesterol Level 148 mg/dl (0-200) HDL Cholesterol 52 mg/dl LDL Cholesterol, Calculated 69 mg/dl VLDL Cholesterol, Calculated 27 mg/dl Cholesterol/HDL Ratio 2.8 Thyroid Stimulating Hormone (TSH) 1.470 uIu/ml (0.300-4.500) Imaging MRI brain combo- . No acute intracranial abnormality identified. Negative for infarction or abnormal intra-axial enhancement. Avidly enhancing dural based extra-axial lesion adjacent to the left frontal convexity measuring up to 12 mm demonstrates imaging characteristics most compatible with a meningioma. No significant mass effect or midline shift. Probable mild chronic microvascular ischemic changes. MRA neck- Limited examination secondary to motion artifact. Grossly patent cervical vessels. CT chest and abdomen- . No evidence for an aortic dissection. Subtle hypodensity at the apex of the left ventricle. This raises the possibility of an age-indeterminate subendocardial infarct. Clinical correlation recommended. Bilateral breast nodules. The right breast nodule remains stable. Follow-up nonemergent mammogram/ultrasound is recommended for further evaluation. TTE- * Small, underfilled LV chamber size with normal wall thickness. * Hyperdynamic LV systolic function, EF >70%. * No segmental left ventricular wall motion abnormalities are noted. * Grade II diastolic dysfunction. * No significant valvular pathology. * Intact interatrial septum. * Small, loculated anterior pericardial effusion with stranding to suggest chronicity. No hemodynamic compromise. EEG - normal Impression 56 year old female with left sided weakness, chest pain- resolving Plan 1. TTE no ASD 2. MRI no acute findings 3. MRA neck- no vascular abnormalities 4. EEG- read as normal 5. cards according to family will be follow up with stress echo 6. left sides weakness not appreciate on exam-resolving 7. neck pain would treat conservatively with cool to warm compresses further recommendations to follow I have seen and discussed above patient with Dr Jeff Archer, neurology Patient seen son in law and daughter provide translation story could reflect either cardiac pain or possibly cervical discogenic pain and exam shows only a positive spurlings sign at most with negative imaging and eeg she has a record of syncope during stress in the past and her sister apparently recently so there may be elements of a stress issue here as well Clinically this is not a cva nor is it a seizure and she has her medical care in [place] where apparently the possibility of a ceervical spine issue has been addressed in the past ( no records available however ) For now we have no further suggestiona for testing and will see her as needed if the situation would change Connor Archer MD
[2017-09-20] MEDS: ENOXAPARIN 40 MG/0.4 ML SYR SQ SCH (13:54)
--- NOTE | 2017-09-20 14:54 | ELECTROENCEPHALOGRAPH REPORT ---
REQUESTING PHYSICIAN: Dr. Quach. CLINICAL DIAGNOSIS: Single episode of diminished responsiveness preceded by chest pain. A long history of episodic unresponsiveness related to stress. Question seizures. ELECTROENCEPHALOGRAM DIAGNOSIS: Essentially normal during wakefulness. DESCRIPTION OF TRACING: This EEG was done as a bedside recording and is of reasonable technical quality. There was an O2 electrode artifact that appeared intermittently throughout the tracing. The determination of the recording, this would have been repaired and II lead was adequate for interpretation. Photic stimulation was performed. Hyperventilation was not. Video analysis of patient movement and behavior was obtained throughout the recording. Under these conditions, there is evidence for what appears to be a normal background rhythm in the alpha range of up to 10 Hz of maximum frequency and 30 microvolts of maximum amplitude. This is maximum posterior head regions and bilaterally symmetrical. Polymorphic mid frequency modest amplitude theta activity is seen over all head regions without clear focal or regional predominance. Anterior head region, maximal bilaterally symmetrical low voltage fast activity in the beta range is present. At no time during the waking tracing is there evidence for potentially epileptogenic activity in the form of polyspike or spike wave bursts, focal sharp waves or focal spikes. Photic stimulation provoked some minimal driving response without a photomyogenic or photoparoxysmal component. INTERPRETATION: This electroencephalography is essentially normal during wakefulness without evidence for focal or generalized encephalopathy and without evidence for potentially epileptogenic activity.
--- NOTE | 2017-09-20 14:57 | CARDIOLOGY CONSULTATION ---
DATE OF CONSULTATION: 09/20/2017 CONSULTATION REQUESTED BY: Emilie Fernandez DO REASON FOR CONSULTATION: Chest pain with syncope. HISTORY OF PRESENT ILLNESS: Mrs. Flowers is a very pleasant, non-Lao speaking 56-year-old woman. Her son-in-law and daughter are at the bedside and she states that she prefers them to act as interpreters. Apparently, the patient was having pain last night at home. She states that around 6:00 last night, she was sitting on the couch and she started developing neck pain. This is nothing new for her. She does have chronic neck pain; however, the pain started to radiate down her shoulder and into her left arm and somewhat into her chest. She has had similar pain in the past, but states that this episode was much more severe than normal. With this pain, she started becoming anxious. She felt as though she was sweating, even though she was not. She became short of breath and she lost consciousness. This was a witnessed event by the family. She was unconscious for only a few seconds. She did not have any tonic-clonic movements. No loss of bowel or bladder function. When she awoke, the chest pain was gone, but the pain remained in her shoulders down to her arms. Currently, she is without complaint at rest. According to the daughter, the patient has a longstanding history of vasovagal syncope and syncopizes very frequently with significant stressors and she has syncopized with pain in the past as well. PAST SURGICAL HISTORY: 1. Appendectomy. 2. Total abdominal hysterectomy. 3. Breast biopsy. MEDICAL ILLNESSES: 1. Hypertension. 2. Dyslipidemia. 3. Migraines. 4. Osteoporosis. 5. Depression. 6. History of vasovagal syncope. FAMILY HISTORY: Remarkable for a sister who had an unknown heart problem in [place]. SOCIAL HISTORY: She denies any alcohol, tobacco or recreational drug use. She is . She lives at home with family. ALLERGIES: No known drug allergies. REVIEW OF SYSTEMS: As per HPI, all other review of systems reviewed and negative at this time. MEDICATIONS AN OUTPATIENT: 1. Aspirin 81 mg daily. 2. Vasotec 20 mg daily. 3. Propranolol 80 mg b.i.d. 4. Simvastatin 20 mg daily. 5. Topamax daily. 6. Paxil daily. PHYSICAL EXAMINATION: VITAL SIGNS: Temperature 36.7, pulse 76, respiratory rate 12, blood pressure 135/85. GENERAL: Awake, alert, oriented x3 in no acute distress. HEENT: Normocephalic, atraumatic. Pupils equal, round, and reactive to light and accommodation. Extraocular muscles intact. Anicteric sclerae. Moist mucous membranes. NECK: No JVD, no bruit. CARDIOVASCULAR: Regular. Positive S4. Normal S1 and S2. No S3. No murmurs or rubs. PULMONARY: Clear to auscultation bilaterally. No rales, rhonchi, or wheezing. ABDOMEN: Bowel sounds x4, soft. No rebound, guarding, or tenderness. No organomegaly. EXTREMITIES: No clubbing, cyanosis, or edema. +2 pedal pulses bilaterally. SKIN: Warm and dry. TEST RESULTS: A 12-lead EKG performed in the Emergency Department independently reviewed at this time shows normal sinus rhythm at 78 beats per minute, normal axis, normal intervals, normal study. Review of parachute folder shows sinus rhythm without any arrhythmias or ectopy. A 2D echocardiogram showed a small under-filled LV chamber size with normal wall thickness, hyperdynamic LV systolic function, EF greater than 70%, no segmental left ventricular wall motion abnormalities are noted, grade 2 diastolic dysfunction, no significant valvular pathology. Intact interatrial septum. Small loculated anterior pericardial effusion with stranding to suggest chronicity. No hemodynamic compromise is present. IMPRESSION: 1. Chest pain. 2. Cervical radiculopathy. 3. Likely vasovagal syncope secondary to #2. RECOMMENDATIONS: It was my pleasure to see Mr. Flowers in consultation today. The patient along with her daughter, son-in-law and [id number] by phone who is a physician were counseled that I believe that the patient most likely had pain from cervical radiculopathy that radiated into her chest and the pain likely cause her to syncopize. So, at this point, for completeness sake, a dobutamine stress echocardiogram will be performed and then we will likely perform a 1-week Zio patch monitor as an outpatient. Should both of those tests come back unremarkable, then no further cardiac testing or intervention would be necessary. The patient and her family were counseled on techniques to avoid vasovagal syncope. ____
[2017-09-20] MEDS ORDERED: DOBUTamine HCL 12.5 MG/ML 20 ML VIAL ONE (14:59)
[2017-09-20] MEDS ORDERED: METOPROLOL TARTRATE 1 MG/ML VIAL ONE ×2 (14:59→16:05)
[2017-09-20] MEDS ORDERED: ATROPINE SULFATE 0.1 MG/ML 5ML SYR ONE (15:00)
[2017-09-20] MEDS ORDERED: MoRPHine SULFATE 2 MG/ML CARP ONE (15:58)
--- NOTE | 2017-09-20 16:12 | Progress Note ---
Progress Note Date of Service Sep 20, 2017. Progress Note Dobutamine stress test patient with severe headache and hypertensive bp response to dobutamine infusion did not reach target heart rate before dobutamine had to be stopped give lopressor 5mg IV and morphine 2mg IV for pain headache improving, son states that she does carry a history of migraines will transfer [facility] to [facility] may need to observe overnight for headache control, will defer to primary team cardiac crouch, all testing unremarkable would recommend outpatient Lexiscan nuclear stress to complete ischemic work up and 7 day Zio patch monitor my office will call to arrange. ok to d/c to home from cardiac standpoint
[2017-09-20 16:15] VITALS: BP 122/82; PULSE 85; TEMP 36.8; O2SAT 98
--- NOTE | 2017-09-20 16:36 | DOBUTAMINE ECHO ---
*NOTICE TO RECEIVING CONSTITUTION PARTY AGENCY This information is strictly Confidential and protected under [place] law. [place] law prohibits you from making any further disclosure of this information unless further disclosure is expressly permitted by the written consent of the person to whom it pertains or is authorized by law. A general authorization for the release of medical or other information is not sufficient for this purpose. Hospital accepts no responsibility if the information is made available to any other person, INCLUDING THE PATIENT. Interpretation Summary * Name: ELIAS ANGELES Study Date: 09/20/2017 02:46 PM BP: 137/82 mmHg * Patient Location: C.2T\S\E215\S\1 HR: 73 * : 1960 (M/d/yyyy) Gender: Female Height: 64 in * Age: 56 yrs Ethnicity: Weight: 167 lb * Ordering Physician: El Roberts * Referring Physician: Self, Referred * Performed By: Nilsa Camarillo RDCS * * Reason For Study: Chest pain * BSA: 1.8 m2 * -- Conclusions -- * Nondiagnostic dobutamine stress echocardiogram, unable to achieve target heart rate. * Testing terminated prematurely due to hypertensive BP response and headache secondary to dobutamine infusion. * Hypertensive BP response. * No inducible ischemia at 73% max predicted heart rate. Procedure Details * DOBUTAMINE ECHO, CPT#00714 Stress Parameters * The stress portion of this study was personally supervised by the undersigned interpreting physician. * Rest heart rate was '73' BPM. * Rest blood pressure was '137/82' * Maximum heart rate achieved was 120 bpm. * Maximum heart rate was 73 % of maximum age-predicted heart rate. * Maximum blood pressure was '231/126' * Maximum Dobutamine infusion rate was '40' mcg/kg/min. * A total of 0.5 mg of intravenous Atropine was used to supplement Dobutamine for heart rate response. * Dobutamine infusion was terminated due to symptoms * A total of 10 mg of IV Metoprolol was administered to reverse Dobutamine-induced tachycardia. * The patient exhibited headache during the drug infusion. * The drug infusion was stopped due to headache.
[2017-09-20 19:27] VITALS: BP 103/69; PULSE 73; TEMP 36.7; O2SAT 96
[2017-09-20] MEDS ORDERED: ASPIRIN 81 MG ECTAB PO SCH (21:00)
[2017-09-20] MEDS ORDERED: TOPIRAMATE 25 MG TAB PO SCH (21:00)
[2017-09-20] MEDS ORDERED: TRAMADOL HCL 50 MG TAB PO PRN (21:15)
[2017-09-20 23:38] VITALS: BP 122/72; PULSE 76; TEMP 36.7; O2SAT 98
[2017-09-21] VITALS (7 sets, daily range): BP systolic 116–135; BP diastolic 76–85; PULSE 70–80; TEMP 36.8–36.9; O2SAT 95–100
[2017-09-21] MEDS: IBUPROFEN 200 MG TAB PO PRN ×2 (01:15→08:12)
[2017-09-21 07:36] LABS: BASO % 0.2 %; BASO ABS # 0.02 K/uL (0-0.2); EOS % 1.6 %; EOS ABS # 0.14 K/uL (0-0.5); HEMOGLOBIN 12.4 g/dL (12.0-16.0); IG# 0.02 K/uL (0.00-0.02); LYMPH % 43.3 %; LYMPH ABS # 3.68 K/uL (1.2-3.4); MEAN CORPUSCULAR HEMOGLOBIN 30.1 pg (25-34); MEAN CORPUSCULAR HGB CONC 35.4 g/dl (32-36); MEAN PLATELET VOLUME 9.3 fL (7.4-10.4); MONO % 6.2 %; MONO ABS # 0.53 K/uL (0.11-0.59); NEUT % 48.5 %; NEUT ABS # 4.11 K/uL (1.4-6.5); PLATELET COUNT 269 K/uL (130-400); RED CELL DISTRIBUTION WIDTH CV 13.2 % (11.5-14.5); RED CELL DISTRIBUTION WIDTH SD 40.4 fL (36.4-46.3)
[2017-09-21 08:25] LABS: CALCIUM 8.6 mg/dl (8.5-10.1); CREATININE 0.75 mg/dl (0.60-1.20); POTASSIUM 3.9 mmol/L (3.5-5.1)
--- NOTE | 2017-09-21 08:50 | Progress Note ---
Internal Med Progress Note Date of Service: Sep 21, 2017. Provider Documentation: SUBJECTIVE: Seen and examined at bedside Reports mild neck pain, doing well otherwise Denies chest pain, SOB, dizziness No other complaints Family at bedside, discussed with family in detail OBJECTIVE: Vital Signs-as noted below Physical Exam: General Appearance:Moderately built and nourished, no apparent distress Head: normocephalic, Atraumatic Eyes: normal inspection, EOMI, PERRL Neck: supple, Trachea midline Respiratory/Chest: Normal breath sounds, CTA Cardiovascular: S1, S2, No murmur Abdomen/GI:Soft, Non tender, Bowel sounds present Extremities/Musculoskelatal:normal inspection, no edema Neurologic/Psych:AAOX3, grossly no focal neurological deficits Skin: normal color, warm Lab data as noted below. ASSESSMENT & PLAN: Chest Pain: CTA negative for dissection ECHO:No segmental left ventricular wall motion abnormalities, other findings noted Troponin X 3: Negative A1C:6.1 Lipid panel, TSH, Lipase Normal EKG: No signs of acute Ischemia Continue Aspirin, BB, statin Appreciate Cardiology Input Dobutamine Stress Test:Nondiagnostic dobutamine stress echocardiogram, unable to achieve target heart rate. Planned for outpatient Lexiscan nuclear stress to complete ischemic work up and 7 day Zio patch monitor Syncope Dizziness, Headache, LUE weakness, and numbness resolved H/O near syncope in past MRI Brain:No acute findings, Meningioma Left frontal region noted Neck MRA:. Limited examination secondary to motion artifact. Grossly patent cervical vessels Monitor in Tele: No issues Neuro checks Continue ASA, satins Appreciate Neurology Input PT/OT EEG: Normal Advised to follow up with Orthopedics as outpatient for cervical radiculopathy Dyslipidemia: continue statin Hypertensive Urgency: H/O HTN BP much improved continue home meds B/L Breast Nodules: Incidental finding on CTA Needs follow up with OBGYN as outpatient H/O Migraines: continue Topamax, propranolol Osteoporosis: continue Vit D supplement DVT Px: Lovenox SQ Code Status: Full Code Disposition: Plan to discharge home today Follow up with PCP in 1 week Follow up with your Speeder Frame Tender in 1 week to get outpatient Lexiscan nuclear stress and 7 day Zio patch monitor completed Follow up with your Orthopedic Surgeon for neck pain as advised Follow up with your OBGYN for Breast Nodules noted on CT scan, to get Mammogram /Ultrasound as outpatient Seek immediate medical attention if your symptoms reoccur or worsen PROCEDURES: Neck MRA: Limited examination secondary to motion artifact. Grossly patent cervical vessels CTA: 1. No evidence for an aortic dissection. 2. Subtle hypodensity at the apex of the left ventricle. This raises the possibility of an age-indeterminate subendocardial infarct. Clinical correlation recommended. 3. Bilateral breast nodules. The right breast nodule remains stable. Follow-up nonemergent mammogram/ultrasound is recommended for further evaluation. 4. Additional findings as described above. EEG: This electroencephalography is essentially normal during wakefulness without evidence for focal or generalized encephalopathy and without evidence for potentially epileptogenic activity. MRI Brain: 1. No acute intracranial abnormality identified. Negative for infarction or abnormal intra-axial enhancement. 2. Avidly enhancing dural based extra-axial lesion adjacent to the left frontal convexity measuring up to 12 mm demonstrates imaging characteristics most compatible with a meningioma. No significant mass effect or midline shift. 3. Probable mild chronic microvascular ischemic changes. Dobutamine Stress Test: Nondiagnostic dobutamine stress echocardiogram, unable to achieve target heart rate. * Testing terminated prematurely due to hypertensive BP response and headache secondary to dobutamine infusion. * Hypertensive BP response. * No inducible ischemia at 73% max predicted heart rate. ECHO: * Small, underfilled LV chamber size with normal wall thickness. * Hyperdynamic LV systolic function, EF >70%. * No segmental left ventricular wall motion abnormalities are noted. * Grade II diastolic dysfunction. * No significant valvular pathology. * Intact interatrial septum. * Small, loculated anterior pericardial effusion with stranding to suggest chronicity. No hemodynamic compromise. Vital Signs: Date Time Temp Pulse Resp B/P (MAP) Pulse Ox O2 Delivery O2 Flow Rate FiO2 09/21/17 07:37 36.8 70 18 130/81 (97) 100 Room Air 09/21/17 04:39 36.9 74 15 116/76 (89) 99 Room Air 09/21/17 04:00 95 Room Air 09/21/17 00:00 95 Room Air 09/20/17 23:38 36.7 76 18 122/72 (89) 98 Room Air 09/20/17 20:00 Room Air 09/20/17 19:27 36.7 73 18 103/69 (80) 96 Room Air 09/20/17 16:15 36.8 85 18 122/82 (95) 98 Room Air 09/20/17 16:00 Room Air 09/20/17 12:00 Room Air 09/20/17 11:34 36.7 76 16 135/85 (102) 98 Room Air 09/20/17 09:39 36.7 78 16 126/81 (96) 99 Room Air Lab Results: Results Past 24 Hours Test 09/20/17 16:37 09/21/17 07:24 Range/Units Troponin I < 0.015 0-0.045 ng/ml White Blood Count 8.50 4.8-10.8 K/uL Red Blood Count 4.12 4.2-5.4 M/uL Hemoglobin 12.4 12.0-16.0 g/dL Hematocrit 35.0 37-47 % Mean Corpuscular Volume 85.0 80-100 fL Mean Corpuscular Hemoglobin 30.1 25-34 pg Mean Corpuscular Hemoglobin Concent 35.4 32-36 g/dl Platelet Count 269 130-400 K/uL Mean Platelet Volume 9.3 7.4-10.4 fL Neutrophils (%) (Auto) 48.5 % Lymphocytes (%) (Auto) 43.3 % Monocytes (%) (Auto) 6.2 % Eosinophils (%) (Auto) 1.6 % Basophils (%) (Auto) 0.2 % Neutrophils # (Auto) 4.11 1.4-6.5 K/uL Lymphocytes # (Auto) 3.68 1.2-3.4 K/uL Monocytes # (Auto) 0.53 0.11-0.59 K/uL Eosinophils # (Auto) 0.14 0-0.5 K/uL Basophils # (Auto) 0.02 0-0.2 K/uL RDW Standard Deviation 40.4 36.4-46.3 fL RDW Coefficient of Variation 13.2 11.5-14.5 % Immature Granulocyte % (Auto) 0.2 % Immature Granulocyte # (Auto) 0.02 0.00-0.02 K/uL Sodium Level 142 136-145 mmol/L Potassium Level 3.9 3.5-5.1 mmol/L Chloride Level 111 98-107 mmol/L Carbon Dioxide Level 25 21-32 mmol/L Anion Gap 7.0 3-11 mmol/L Blood Urea Nitrogen 16 7-18 mg/dl Creatinine 0.75 0.60-1.20 mg/dl Est Creatinine Clear Calc Drug Dose 81.8 ml/min Estimated GFR () 103.3 Estimated GFR (Non- 89.1 BUN/Creatinine Ratio 20.7 10-20 Random Glucose 111 70-99 mg/dl Calcium Level 8.6 8.5-10.1 mg/dl
--- NOTE | 2017-09-21 08:54 | Discharge Summary ---
Discharge Summary Date of Service Sep 21, 2017. Discharge Summary Admission Date: Sep 20, 2017 at 01:16 Discharge Date: Sep 21, 2017 Discharge Disposition: Home with services Principal Diagnosis: Chest Pain, Syncope Procedures: CT head: 1. No acute intracranial abnormality. 2. An 11 mm extra-axial left frontal lesion which likely represents a small meningioma. This is of doubtful clinical significance. Follow-up nonemergent brain MRI can be used for confirmation. Neck MRA: Limited examination secondary to motion artifact. Grossly patent cervical vessels CTA: 1. No evidence for an aortic dissection. 2. Subtle hypodensity at the apex of the left ventricle. This raises the possibility of an age-indeterminate subendocardial infarct. Clinical correlation recommended. 3. Bilateral breast nodules. The right breast nodule remains stable. Follow-up nonemergent mammogram/ultrasound is recommended for further evaluation. 4. Additional findings as described above. EEG: This electroencephalography is essentially normal during wakefulness without evidence for focal or generalized encephalopathy and without evidence for potentially epileptogenic activity. MRI Brain: 1. No acute intracranial abnormality identified. Negative for infarction or abnormal intra-axial enhancement. 2. Avidly enhancing dural based extra-axial lesion adjacent to the left frontal convexity measuring up to 12 mm demonstrates imaging characteristics most compatible with a meningioma. No significant mass effect or midline shift. 3. Probable mild chronic microvascular ischemic changes. Dobutamine Stress Test: Nondiagnostic dobutamine stress echocardiogram, unable to achieve target heart rate. * Testing terminated prematurely due to hypertensive BP response and headache secondary to dobutamine infusion. * Hypertensive BP response. * No inducible ischemia at 73% max predicted heart rate. CXR: No active disease in the chest. ECHO: * Small, underfilled LV chamber size with normal wall thickness. * Hyperdynamic LV systolic function, EF >70%. * No segmental left ventricular wall motion abnormalities are noted. * Grade II diastolic dysfunction. * No significant valvular pathology. * Intact interatrial septum. * Small, loculated anterior pericardial effusion with stranding to suggest chronicity. No hemodynamic compromise. Consultations: Cardiology, Neurology Pending Studies/Follow-Up: Follow up with PCP in 1 week Follow up with your Commodity Loan Clerk in 1 week to get outpatient Lexiscan nuclear stress and 7 day Zio patch monitor completed Follow up with your Orthopedic Surgeon for neck pain as advised Follow up with your OBGYN for Breast Nodules noted on CT scan, to get Mammogram /Ultrasound as outpatient Seek immediate medical attention if your symptoms reoccur or worsen Medication Reconciliation Continued Medications: Aspirin (Aspirin Ec) 81 Mg Tab 81 MG PO QPM Cholecalciferol (D-5000) 5,000 Unit Tab 1 TAB PO DAILY for 30 Days, #30 TAB 3 Refills Enalapril (Vasotec) 10 Mg Tab 20 MG PO DAILY, TAB Pantoprazole (Protonix) 40 Mg Tab 40 MG PO DAILY, #30 TAB Paroxetine (Paxil) 20 Mg Tab 20 MG PO DAILY, TAB Propranolol (Inderal) 80 Mg Tab 80 MG PO BID, TAB Simvastatin (Zocor) 20 Mg Tab 20 MG PO DAILY, TAB Topiramate (Topamax) 50 Mg Tab 50 MG PO HS, TAB Admission Information HPI (per Admitting provider): Patient is a 56 yo female who was brought to the ER for complaints of severe chest pain and syncope. The patient is accompanied by her son-in-law and family member who state that the patient began to complain of pain around 6 PM while sitting on the couch, they state that later in the evening the patient slumped over next to her family member and they thought she was taking rest, however she had her eyes closed and was completely unresponsive. No shaking or convulsions noted. The patient reportedly had her mouth open and tongue hanging out, but did not seem to have any eye deviation, frothing, or loss of bowel or bladder control. The patient was finally able to be awakened, and complained of having pain in her shoulders and down her arms. She states she recalls having the chest pain and associated dizziness and also numbness in her left arm, but does not recall passing out. She reports having a headache now but denies any visual symptoms. She was given NTG and aspirin in the ER and has had some improvement in her symptoms but still feels pain in her chest and left arm. No recent illness or known sick contacts. Also spoke with the patient's daughter who works in the medical field and stated that the patient used to have syncopal episodes during times of extreme grief/tragedy in the family, however this time there has not been any preceding events or stressful moments, and the patient has never had chest pain or such difficulty regaining consciousness. Physical Exam (per Admitting): General Appearance: WD/WN, no apparent distress Head: normocephalic, atraumatic Eyes: PERRL, EOMI, sclerae normal (mild conjunctival injection) ENT: hearing grossly normal Neck: supple, no JVD, no carotid bruits, trachea midline Respiratory/Chest: chest non-tender, lungs clear, normal breath sounds, no respiratory distress, no accessory muscle use Cardiovascular: regular rate, rhythm, no edema, no gallop, no JVD, no murmur Abdomen/GI: normal bowel sounds, non tender, soft, no organomegaly Back: no CVA tenderness, + paravertebral tenderness Extremities/Musculoskelatal: no calf tenderness, normal capillary refill, no pedal edema Neurologic/Psych: 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 Planned for outpatient Lexiscan nuclear stress to complete ischemic work up and 7 day Zio patch monitor Syncope Dizziness, Headache, LUE weakness, and numbness resolved H/O near syncope in past MRI Brain:No acute findings, Meningioma Left frontal region noted Neck MRA:. Limited examination secondary to motion artifact. Grossly patent cervical vessels Monitor in Tele: No issues Neuro checks Continue ASA, satins Appreciate Neurology Input PT/OT EEG: Normal Advised to follow up with Orthopedics as outpatient for cervical radiculopathy Dyslipidemia: continue statin Hypertensive Urgency: H/O HTN BP much improved continue home meds B/L Breast Nodules: Incidental finding on CTA Needs follow up with OBGYN as outpatient H/O Migraines: continue Topamax, propranolol Osteoporosis: continue Vit D supplement DVT Px: Lovenox SQ Code Status: Full Code Disposition: Plan to discharge home today Follow up with PCP in 1 week Follow up with your Commodity Loan Clerk in 1 week to get outpatient Lexiscan nuclear stress and 7 day Zio patch monitor completed Follow up with your Orthopedic Surgeon for neck pain as advised Follow up with your OBGYN for Breast Nodules noted on CT scan, to get Mammogram /Ultrasound as outpatient Seek immediate medical attention if your symptoms reoccur or worsen PROCEDURES: Neck MRA: Limited examination secondary to motion artifact. Grossly patent cervical vessels CTA: 1. No evidence for an aortic dissection. 2. Subtle hypodensity at the apex of the left ventricle. This raises the possibility of an age-indeterminate subendocardial infarct. Clinical correlation recommended. 3. Bilateral breast nodules. The right breast nodule remains stable. Follow-up nonemergent mammogram/ultrasound is recommended for further evaluation. 4. Additional findings as described above. EEG: This electroencephalography is essentially normal during wakefulness without evidence for focal or generalized encephalopathy and without evidence for potentially epileptogenic activity. MRI Brain: 1. No acute intracranial abnormality identified. Negative for infarction or abnormal intra-axial enhancement. 2. Avidly enhancing dural based extra-axial lesion adjacent to the left frontal convexity measuring up to 12 mm demonstrates imaging characteristics most compatible with a meningioma. No significant mass effect or midline shift. 3. Probable mild chronic microvascular ischemic changes. Dobutamine Stress Test: Nondiagnostic dobutamine stress echocardiogram, unable to achieve target heart rate. * Testing terminated prematurely due to hypertensive BP response and headache secondary to dobutamine infusion. * Hypertensive BP response. * No inducible ischemia at 73% max predicted heart rate. ECHO: * Small, underfilled LV chamber size with normal wall thickness. * Hyperdynamic LV systolic function, EF >70%. * No segmental left ventricular wall motion abnormalities are noted. * Grade II diastolic dysfunction. * No significant valvular pathology. * Intact interatrial septum. * Small, loculated anterior pericardial effusion with stranding to suggest chronicity. No hemodynamic compromise. Total time spent on discharge = 34 minutes This includes examination of the patient, discharge planning, medication reconciliation, and communication with other providers. Discharge Instructions Discharge Instructions Date of Service Sep 21, 2017. Admission Reason for Admission: Chest Pain, Lue Weakness, Syncope Discharge Discharge Diagnosis / Problem: Chest Pain, Syncope Discharge Goals Goal(s): Decrease discomfort, Improve function Activity Recommendations Activity Limitations: resume your previous activity Exercise/Sports Limitations: as tolerated . Instructions / Follow-Up Instructions / Follow-Up Follow up with PCP in 1 week Follow up with your Commodity Loan Clerk in 1 week to get outpatient Lexiscan nuclear stress and 7 day Zio patch monitor completed Follow up with your Orthopedic Surgeon for neck pain as advised Follow up with your OBGYN for Breast Nodules noted on CT scan, to get Mammogram /Ultrasound as outpatient Seek immediate medical attention if your symptoms reoccur or worsen Current Hospital Diet Patient's current hospital diet: Vegetarian Diet, AHA Diet (Heart Healthy) Discharge Diet Recommended Diet: AHA Diet (Heart Healthy), Vegetarian Diet Pending Studies Studies pending at discharge: no Laboratory Results Hemoglobin A1c Test 09/20/17 06:56 Range/Units Estimated Average Glucose 128 mg/dl Hemoglobin A1c 6.1 H 4.5-5.6 % Lipid Panel Test 09/20/17 06:56 Range/Units Triglycerides Level 135 0-150 mg/dl Cholesterol Level 148 0-200 mg/dl HDL Cholesterol 52 mg/dl Cholesterol/HDL Ratio 2.8 LDL Cholesterol, Calculated 69 mg/dl Medical Emergencies . Who to Call and When: Medical Emergencies: If at any time you feel your situation is an emergency, please call 911 immediately. . Non-Emergent Contact Non-Emergency issues call your: Primary Care Provider, Commodity Loan Clerk Call Non-Emergent contact if: you have a fever, your pain is not controlled, your pain is worsening, your pain is unusual for you, your pain is concerning you, you have any medication questions Seek immediate medical attention if your symptoms reoccur or worsen . . "Provider Documentation" section prepared by Oracio Quach. . VTE Core Measure Inpt VTE Proph given/why not?: Enoxaparin (Lovenox)SQ <Electronically signed by Oracio Quach MD> Signed: 09/21/17 0854 Signed: The status of this report is Signed * If report status is Draft, the document has not been finalized by the responsible provider.
[2017-09-21] MEDS: PANTOprazole SOD 40 MG TAB PO SCH (10:31)
[2017-09-21] MEDS: PAROXETINE 20 MG TAB PO SCH (10:31)
[2017-09-21] MEDS: PROPRANOLOL HCL 80 MG TAB PO SCH (10:31)
[2017-09-21] MEDS: CHOLECALCIFEROL 1000 INTER.UNIT TAB PO SCH (10:32)
[2017-09-21] MEDS: SIMVASTATIN 20 MG TAB PO SCH (10:32)
[2017-09-21] MEDS: ENALAPRIL MALEATE 10 MG TAB PO SCH (10:32)
[2017-09-21] MEDS: ENOXAPARIN 40 MG/0.4 ML SYR SQ SCH (10:33)
== END 2017-09-21 11:49 | disposition home or self-care (01) | DRG 313 ==
LOC: C.EDB 21:59 → C.2T 09-20 01:16
PROVIDERS: ADMIT Internal Medicine; ATTEND Internal Medicine
DX: R07.9 Chest pain, unspecified (principal); I16.0 Hypertensive urgency; I10 Essential (primary) hypertension; R53.1 Weakness; R55 Syncope and collapse; R42 Dizziness and giddiness; R20.0 Anesthesia of skin; R51 Headache; T44.5X5A Adverse effect of predominantly beta-adrenoreceptor agonists, initial encounter; Y92.239 Unspecified place in hospital as the place of occurrence of the external cause; M54.12 Radiculopathy, cervical region; N63.0 Unspecified lump in unspecified breast; E78.5 Hyperlipidemia, unspecified; M81.0 Age-related osteoporosis without current pathological fracture; F32.9 Major depressive disorder, single episode, unspecified; G43.909 Migraine, unspecified, not intractable, without status migrainosus; Z82.49 Family history of ischemic heart disease and other diseases of the circulatory system; Z79.82 Long term (current) use of aspirin; Z79.899 Other long term (current) drug therapy; Z91.018 Allergy to other foods